=== PATIENT | female | born 1950 | race Caucasian/White ===

== ENCOUNTER 2020-05-07 09:44 | Outpatient (REF) | payer MEDICARE, SELFPAY ==
--- NOTE | ~2020-05-07 | FL_ITS ---
EXAMINATION: FL UPPER GI SERIES AND BARIUM SWALLOW CLINICAL INFORMATION: History gastritis, unspecified without bleeding. Patient notes intermittent GI absent and heartburn. COMPARISON: CT abdomen and pelvis 03/07/2019 TECHNIQUE: Upper GI series and barium swallow are performed using fluoroscopic evaluation in addition to multiple fluoroscopic spot views, including cine images during swallowing. The patient is imaged both upright and prone and using both thick and thin barium sulfate along with effervescent granules. Water siphon test performed. Fluoroscopy time: 2.0 minutes DAP: 11.88 Gycm2 Fluoroscopic spot images: 38 FINDINGS: There is normal esophageal motility. The cervical esophagus shows no web or diverticulum, No cervical achalasia. The thoracic esophagus show no obstruction, stricture, or ulceration. There is no hiatal hernia demonstrated. No gastroesophageal reflux. The stomach shows no thickened folds or ulcer crater or outlet obstruction. The duodenal bulb is pliable and without ulcer crater or scarring. There is a diverticulum from the descending duodenum. This measures approximately [address] 03/07/2019. It readily fills and empties with contrast. The upper jejunal mucosal pattern is unremarkable. FL/FL upper GI series IMPRESSION: 1. No hiatal hernia or reflux or ulceration. 2. No gastric ulcer or outlet obstruction. 3. Incidental chronic descending duodenal diverticulum, approximately 3 cm.
== END 2020-05-07 09:45 | disposition home or self-care (01) ==
LOC: HO.XRAY 09:44
PROVIDERS: PCP Internal Medicine; Visit Provider Internal Medicine
DX: K29.70 Gastritis, unspecified, without bleeding (principal)
CPT/HCPCS: 74240

== ENCOUNTER 2020-06-22 08:29 | Outpatient (REF) | payer MEDICARE, SELFPAY ==
--- NOTE | ~2020-06-22 | MM_ITS ---
EXAMINATION: MM SCREENING DIGITAL BREAST TOMOSYNTHESIS, BILATERAL CLINICAL INFORMATION: Screening. Asymptomatic. The lifetime risk of breast cancer based on the Tyrer-Cuzick Model is 5%. COMPARISON: Mammography: 03/28/2019, 12/24/2017, 12/04/2016 TECHNIQUE: Digital breast tomosynthesis is performed in both the craniocaudal and mediolateral oblique views along with computer-aided detection (CAD). Synthesized 2D images are generated from the tomosynthesis. FINDINGS: There are scattered areas of fibroglandular density (ACR BI-RADS breast composition Category b). There are no significant masses, abnormal calcifications, or other abnormalities. Parenchymal pattern is similar to prior studies. No significant changes. MM/MM tomosynthesis screening BI IMPRESSION: No mammographic evidence of malignancy. ASSESSMENT: BI-RADS 1: Negative RECOMMENDATION: Routine annual mammography screening. This patient's information was entered into a reminder system with a target due date for their next mammogram.
== END 2020-06-22 08:30 | disposition home or self-care (01) ==
LOC: HO.MAMMO 08:29
PROVIDERS: PCP Internal Medicine; Visit Provider Internal Medicine
DX: Z12.31 Encounter for screening mammogram for malignant neoplasm of breast (principal)
CPT/HCPCS: 77063; 77067

== ENCOUNTER 2020-09-07 15:42 | Outpatient (REF) | payer MEDICARE, SELFPAY ==
[2020-09-07 16:24] LABS: Anion Gap 15 (12-20); Carbon Dioxide 25 mmol/L (22-29); Chloride 93 mmol/L (96-108); Osmolality, Serum 264 mosm/kg (281-305); Potassium 4.9 mmol/L (3.3-5.1); Sodium 128 mmol/L (135-145)
[2020-09-07 16:46] LABS: Osmolality Urine 346 mosm/kg (373-1093)
[2020-09-15 00:22] LABS: Copeptin 4 pmol/L (< OR = 14)
== END 2020-09-07 15:43 | disposition home or self-care (01) ==
LOC: HO.LAB 15:42
PROVIDERS: Visit Provider Internal Medicine
DX: E87.1 Hypo-osmolality and hyponatremia (principal)
CPT/HCPCS: 36415; 80051; 83930; 83935; 84588

== ENCOUNTER 2020-09-10 06:35 | Outpatient (REF) | payer MEDICARE, SELFPAY ==
[2020-09-10 07:11] LABS: Anion Gap 14 (12-20); Carbon Dioxide 26 mmol/L (22-29); Chloride 98 mmol/L (96-108); Potassium 5.4 mmol/L (3.3-5.1); Sodium 133 mmol/L (135-145)
== END 2020-09-10 06:36 | disposition home or self-care (01) ==
LOC: HO.LAB 06:35
PROVIDERS: PCP Internal Medicine; Visit Provider Internal Medicine
DX: E87.1 Hypo-osmolality and hyponatremia (principal)
CPT/HCPCS: 36415; 80051

== ENCOUNTER 2020-09-13 06:51 | Outpatient (REF) | payer MEDICARE, SELFPAY ==
[2020-09-13 09:01] LABS: Anion Gap 14 (12-20); Carbon Dioxide 27 mmol/L (22-29); Chloride 99 mmol/L (96-108); Potassium 5.4 mmol/L (3.3-5.1); Sodium 135 mmol/L (135-145)
== END 2020-09-13 06:52 | disposition home or self-care (01) ==
LOC: HO.LAB 06:51
PROVIDERS: PCP Internal Medicine; Visit Provider Internal Medicine
DX: E87.1 Hypo-osmolality and hyponatremia (principal); R11.0 Nausea
CPT/HCPCS: 36415; 80051; 82533

== ENCOUNTER 2020-09-16 11:19 | Outpatient (REF) | payer MEDICARE, SELFPAY ==
[2020-09-16 13:41] LABS: Anion Gap 15 (12-20); Blood Urea Nitrogen 12 mg/dL (9-16); Calcium 9.7 mg/dL (8.4-10.2); Carbon Dioxide 26 mmol/L (22-29); Chloride 96 mmol/L (96-108); Estimated Glomerular Filt Rate > 60; Glucose Random 118 mg/dL (60-115); Potassium 4.8 mmol/L (3.3-5.1); Sodium 132 mmol/L (135-145)
== END 2020-09-16 11:20 | disposition home or self-care (01) ==
LOC: HO.LAB 11:19
PROVIDERS: PCP Internal Medicine; Visit Provider Internal Medicine
DX: E87.1 Hypo-osmolality and hyponatremia (principal); E87.6 Hypokalemia
CPT/HCPCS: 36415; 80048

== ENCOUNTER 2020-09-20 09:22 | Outpatient (REF) | payer MEDICARE, SELFPAY ==
[2020-09-20 10:34] LABS: Anion Gap 13 (12-20); Carbon Dioxide 28 mmol/L (22-29); Chloride 94 mmol/L (96-108); Potassium 5.2 mmol/L (3.3-5.1); Sodium 130 mmol/L (135-145)
== END 2020-09-20 09:23 | disposition home or self-care (01) ==
LOC: HO.LAB 09:22
PROVIDERS: PCP Internal Medicine; Visit Provider Internal Medicine
DX: R53.83 Other fatigue (principal)
CPT/HCPCS: 36415; 80051

== ENCOUNTER 2020-09-24 09:16 | Outpatient (REF) | payer MEDICARE, SELFPAY ==
[2020-09-24 10:06] LABS: Anion Gap 15 (12-20); Carbon Dioxide 28 mmol/L (22-29); Chloride 98 mmol/L (96-108); Potassium 5.5 mmol/L (3.3-5.1); Sodium 135 mmol/L (135-145)
== END 2020-09-24 09:17 | disposition home or self-care (01) ==
LOC: HO.LAB 09:16
PROVIDERS: PCP Internal Medicine; Visit Provider Internal Medicine
DX: E87.1 Hypo-osmolality and hyponatremia (principal)
CPT/HCPCS: 36415; 80051

== ENCOUNTER 2020-10-01 08:50 | Outpatient (REF) | payer MEDICARE, SELFPAY ==
[2020-10-01 09:56] LABS: Anion Gap 14 (12-20); Carbon Dioxide 28 mmol/L (22-29); Chloride 96 mmol/L (96-108); Potassium 5.1 mmol/L (3.3-5.1); Sodium 133 mmol/L (135-145)
== END 2020-10-01 08:51 | disposition home or self-care (01) ==
LOC: HO.LAB 08:50
PROVIDERS: PCP Internal Medicine; Visit Provider Internal Medicine
DX: E87.6 Hypokalemia (principal)
CPT/HCPCS: 36415; 80051

== ENCOUNTER 2020-10-15 10:24 | Outpatient (REF) | payer MEDICARE, SELFPAY ==
[2020-10-15 11:20] LABS: Anion Gap 12 (12-20); Carbon Dioxide 29 mmol/L (22-29); Chloride 96 mmol/L (96-108); Potassium 5.2 mmol/L (3.3-5.1); Sodium 132 mmol/L (135-145)
== END 2020-10-15 10:25 | disposition home or self-care (01) ==
LOC: HO.LAB 10:24
PROVIDERS: PCP Internal Medicine; Visit Provider Internal Medicine
DX: E87.1 Hypo-osmolality and hyponatremia (principal)
CPT/HCPCS: 36415; 80051

== ENCOUNTER 2020-10-22 10:30 | Outpatient (REF) | payer MEDICARE, SELFPAY ==
[2020-10-22 12:05] LABS: Anion Gap 14 (12-20); Carbon Dioxide 27 mmol/L (22-29); Chloride 95 mmol/L (96-108); Potassium 5.3 mmol/L (3.3-5.1); Sodium 131 mmol/L (135-145)
== END 2020-10-22 10:31 | disposition home or self-care (01) ==
LOC: HO.LAB 10:30
PROVIDERS: PCP Internal Medicine; Visit Provider Internal Medicine
DX: E87.1 Hypo-osmolality and hyponatremia (principal)
CPT/HCPCS: 36415; 80051

== ENCOUNTER 2020-12-13 10:35 | Outpatient (REF) | payer MEDICARE, SELFPAY ==
[2020-12-13 11:47] LABS: Anion Gap 13 (12-20); Carbon Dioxide 29 mmol/L (22-29); Chloride 97 mmol/L (96-108); Potassium 5.6 mmol/L (3.3-5.1); Sodium 133 mmol/L (135-145)
== END 2020-12-13 10:36 | disposition home or self-care (01) ==
LOC: HO.LAB 10:35
PROVIDERS: PCP Internal Medicine; Visit Provider Internal Medicine
DX: E87.1 Hypo-osmolality and hyponatremia (principal)
CPT/HCPCS: 36415; 80051

== ENCOUNTER 2020-12-31 14:27 | Outpatient (REF) | payer MEDICARE, SELFPAY ==
[2020-12-31 15:37] LABS: Alanine Aminotransferase 15 U/L (0-31); Albumin Level 4.8 g/dL (3.5-5.0); Alkaline Phosphatase 75 U/L (39-117); Anion Gap 14 (12-20); Aspartate Amino Transferase 21 U/L (5-31); Bilirubin Total 0.3 mg/dL (0.0-1.0); Blood Urea Nitrogen 17 mg/dL (9-16); Calcium 9.8 mg/dL (8.4-10.2); Carbon Dioxide 26 mmol/L (22-29); Chloride 98 mmol/L (96-108); Estimated Glomerular Filt Rate > 60; Glucose Random 117 mg/dL (60-115); Potassium 4.3 mmol/L (3.3-5.1); Sodium 134 mmol/L (135-145); Total Protein 7.5 g/dL (6.5-8.0)
[2020-12-31 15:58] LABS: Thyroid Stimulating Hormone 1.93 uIU/mL (0.32-4.0)
[2020-12-31 16:06] LABS: Osmolality Urine 491 mosm/kg (373-1093)
== END 2020-12-31 14:28 | disposition home or self-care (01) ==
LOC: HO.LAB 14:27
PROVIDERS: PCP Internal Medicine; Visit Provider Internal Medicine Hypertension Specialist
DX: E87.1 Hypo-osmolality and hyponatremia (principal)
CPT/HCPCS: 36415; 80053; 83935; 84300; 84443

== ENCOUNTER 2021-01-28 09:32 | Outpatient (REF) | payer MEDICARE, SELFPAY ==
[2021-01-28 10:31] LABS: Anion Gap 13 (12-20); Blood Urea Nitrogen 14 mg/dL (9-16); Calcium 9.8 mg/dL (8.4-10.2); Carbon Dioxide 29 mmol/L (22-29); Chloride 98 mmol/L (96-108); Estimated Glomerular Filt Rate > 60; Glucose Random 75 mg/dL (60-115); Potassium 5.5 mmol/L (3.3-5.1); Sodium 134 mmol/L (135-145)
== END 2021-01-28 09:33 | disposition home or self-care (01) ==
LOC: HO.LAB 09:32
PROVIDERS: PCP Internal Medicine; Visit Provider Internal Medicine Hypertension Specialist
DX: E87.1 Hypo-osmolality and hyponatremia (principal)
CPT/HCPCS: 36415; 80048

== ENCOUNTER 2021-02-14 08:27 | Outpatient (REF) | payer MEDICARE, SELFPAY ==
[2021-02-14 09:45] LABS: Anion Gap 10 (12-20); Blood Urea Nitrogen 17 mg/dL (9-16); Carbon Dioxide 31 mmol/L (22-29); Chloride 101 mmol/L (96-108); Estimated Glomerular Filt Rate > 60; Potassium 5.6 mmol/L (3.3-5.1); Sodium 136 mmol/L (135-145)
== END 2021-02-14 08:28 | disposition home or self-care (01) ==
LOC: HO.LAB 08:27
PROVIDERS: PCP Internal Medicine; Visit Provider Internal Medicine Hypertension Specialist
DX: E87.1 Hypo-osmolality and hyponatremia (principal)
CPT/HCPCS: 36415; 80051; 82310; 82565; 84520

== ENCOUNTER 2021-02-17 09:54 | Outpatient (REF) | payer MEDICARE, SELFPAY ==
--- NOTE | ~2021-02-17 | XR_ITS ---
EXAMINATION: CR HIP, LEFT CLINICAL INFORMATION: Left. Rule out DJD. COMPARISON: CT scan of the abdomen and pelvis dated 03/07/2019. TECHNIQUE: Two views of the left hip. FINDINGS: No acute fracture or dislocation. Minimal degenerative change seen with minimal spurring and cystic changes in the lateral acetabular roof and mild superior joint space narrowing. The left sacroiliac joint and pubic symphysis are intact and unremarkable. Mild spurring is seen in the lower lumbar spine. XR/XR hip LT min 2V IMPRESSION: 1. No acute fracture or dislocation. 2. Mild degenerative changes in the left hip.
== END 2021-02-17 09:55 | disposition home or self-care (01) ==
LOC: HO.HMGCX 09:54
PROVIDERS: Absent Provider Orthopaedic Surgery; PCP Internal Medicine; Visit Provider Internal Medicine
DX: M25.552 Pain in left hip (principal)
CPT/HCPCS: 73502

== ENCOUNTER 2021-03-14 08:45 | Outpatient (REF) | payer MEDICARE, SELFPAY ==
--- NOTE | ~2021-03-14 | XR_ITS ---
EXAMINATION: XR PELVIS CLINICAL INFORMATION: Pain COMPARISON: Left hip x-ray 02/17/2021 TECHNIQUE: AP view of the pelvis. FINDINGS: Bone alignment is normal. No fracture or dislocation is seen. There is small osteophytes at both hip joints. The hip joints are otherwise normal. Bones of the pelvis are normal. There are degenerative changes of the visualized lower lumbar spine. Soft tissues are unremarkable. XR/XR pelvis 1-2V IMPRESSION: Small osteophytes at both hip joints. Degenerative changes of visualized lower lumbar spine.
== END 2021-03-14 08:46 | disposition home or self-care (01) ==
LOC: HO.HOSX 08:45
PROVIDERS: Visit Provider Physician Assistant
DX: M16.12 Unilateral primary osteoarthritis, left hip (principal); M76.899 Other specified enthesopathies of unspecified lower limb, excluding foot
CPT/HCPCS: 72170; 99202

== ENCOUNTER → 2021-03-17 10:14 | Outpatient (BNVA) | payer MEDICARE, SELFPAY | PROVIDERS: PCP Internal Medicine; Referring Provider Internal Medicine; Visit Provider Surgery | DX: R10.32 Left lower quadrant pain (principal) | CPT/HCPCS: 99202 ==

== ENCOUNTER 2021-03-28 09:00 | Outpatient (RCR) | payer MEDICARE, SELFPAY ==
--- NOTE | 2021-08-10 14:36 | MHC.PT.DC ---
[facility] [place] [facility] [place] [facility] [address] [place] Morales [address] [facility] [place] [phone] F: [phone] F: [phone] F: [phone] F: [phone] Physical Therapy Discharge Report Diagnosis: OA L hip, L hip flexor tendonitis. Date of Surgery: Date of Evaluation: 03/22/21 Date of Discharge: 08/10/21 Treatments to Date: 2 Cancellations to Date: No Shows to Date: Discharge Status: Patient Elected to Stop Discharge Summary: Electronically signed by: Mino Davidson PT. Please sign and return to therapist. Thank you for your referral.
== END 2021-08-10 14:36 | disposition home or self-care (01) ==
LOC: HO.PTCHIC 09:00
PROVIDERS: PCP Internal Medicine; Visit Provider Physician Assistant
DX: M16.12 Unilateral primary osteoarthritis, left hip (principal); M76.899 Other specified enthesopathies of unspecified lower limb, excluding foot
CPT/HCPCS: 97110; 97150; 97161

== ENCOUNTER → 2021-04-25 09:58 | Outpatient (BNVA) | payer MEDICARE, SELFPAY | PROVIDERS: PCP Internal Medicine; Visit Provider Physician Assistant | DX: M76.899 Other specified enthesopathies of unspecified lower limb, excluding foot (principal); M16.12 Unilateral primary osteoarthritis, left hip | CPT/HCPCS: 99212 ==

== ENCOUNTER 2021-06-28 07:47 | Outpatient (REF) | payer MEDICARE, SELFPAY ==
--- NOTE | ~2021-06-28 | MM_ITS ---
EXAMINATION: MM SCREENING DIGITAL BREAST TOMOSYNTHESIS, BILATERAL CLINICAL INFORMATION: Screening. Asymptomatic. The lifetime risk of breast cancer based on the Tyrer-Cuzick Model is 5%. COMPARISON: Mammography: 06/22/2020, 03/28/2019, 12/24/2017 TECHNIQUE: Digital breast tomosynthesis is performed in both the craniocaudal and mediolateral oblique views along with computer-aided detection (CAD). Synthesized 2D images are generated from the tomosynthesis. FINDINGS: There are scattered areas of fibroglandular density (ACR BI-RADS breast composition Category b). There are no significant masses, abnormal calcifications, or other abnormalities. Parenchymal pattern is similar to prior studies. No developing density. The axilla and skin contours are unremarkable. MM/MM tomosynthesis screening BI IMPRESSION: No mammographic evidence of malignancy. ASSESSMENT: BI-RADS 1: Negative RECOMMENDATION: Routine annual mammography screening. This patient's information was entered into a reminder system with a target due date for their next mammogram.
--- NOTE | ~2021-06-28 | MM_ITS ---
EXAMINATION: BONE DENSITOMETRY CLINICAL INDICATION: Postmenopausal. COMPARISON: Baseline BD dated 10/26/2015. TECHNIQUE: Using a [employer] DXA System (software version: 13.1) manufactured by [employer], dual-energy x-ray absorptiometry was performed of the lumbar spine and left hip. The images are of good technical quality. Summary results are attached. FINDINGS: AP SPINE L1-L2 (excluding L3 and L4): The data of L1-L4 has been changed to exclude the L3 and L4 vertebral bodies, because degenerative changes at these levels may cause overestimation of lumbar spine density. Current: BMD 0.925 g/cm2, Z-score -0.4, T-score -2.0, osteopenia, 4.0% decrease from baseline (<5% change is not significant). Baseline: BMD 0.964 g/cm2. LEFT FEMUR, NECK: Current: BMD 0.744 g/cm2, Z-score -0.5, T-score -2.1, osteopenia. Baseline: BMD 0.806 g/cm2. LEFT FEMUR, TOTAL: Current: BMD 0.838 g/cm2, Z-score 0.1, T-score -1.3, osteopenia, 5.2% decrease from baseline (<5% change is not significant). Baseline: BMD 0.884 g/cm2. IDENTIFIED RISK FACTORS: Height loss, family history (parental hip fracture), menopause. HISTORY OF FRACTURE: None listed. MEDICATIONS: None listed. MM/XR DEXA axial skeleton IMPRESSION: 1. DIAGNOSIS: Osteopenia based on the lowest T-score value of -2.1 in the femoral neck applying World Health Organization criteria. 2. 10-YEAR FRACTURE RISK PREDICTION, FRAX: Major osteoporotic fracture (clinical spine, forearm, hip or shoulder) 20.5%. Hip fracture 6.0%. 3. Treatment Recommendations: NOF guidelines recommend consideration for treatment in postmenopausal women and men age 50 and older presenting with the following: -A hip or vertebral (clinical or morphometric) fracture. -T-score less than or equal to -2.5 at the femoral neck or spine after appropriate evaluation to exclude secondary causes. -Low bone mass at the hip or spine and a 10-year fracture probability by FRAX of greater than or equal to 3% for hip fracture or greater than or equal to 20% for major osteoporotic fracture based on the [place] adapted WHO algorithm. 4. Other Recommendations: All treatment decisions require clinical judgment and consideration of individual patient factors, including patient preferences, comorbidities, previous drug use, risk factors not captured in the FRAX model (e.g. frailty, falls, vitamin D deficiency, increased bone turnover, interval significant decline in bone density) and possible under or overestimation of fracture risk by FRAX. Additional medical evaluation for secondary cause of low bone mineral density may be appropriate. FUTURE SCAN RECOMMENDATION: People with diagnosed cases of osteoporosis or at high risk for fracture should have regular bone mineral density tests. For patients eligible for Medicare, routine testing is allowed once every 2 years. The testing frequency can be increased to one year for patients who have rapidly progressing disease, those who are receiving or discontinuing medical therapy to restore bone mass, or have additional risk factors.
== END 2021-06-28 07:48 | disposition home or self-care (01) ==
LOC: HO.MAMMO 07:47
PROVIDERS: Visit Provider Internal Medicine
DX: Z12.31 Encounter for screening mammogram for malignant neoplasm of breast (principal); Z13.820 Encounter for screening for osteoporosis; Z78.0 Asymptomatic menopausal state; M85.80 Other specified disorders of bone density and structure, unspecified site
CPT/HCPCS: 77063; 77067; 77080

== ENCOUNTER 2021-11-02 10:22 | Outpatient (REF) | payer MEDICARE, SELFPAY ==
--- NOTE | ~2021-11-02 | XR_ITS ---
EXAMINATION: XR ANKLE, LEFT CLINICAL INFORMATION: Sprain left ankle COMPARISON: None TECHNIQUE: AP, lateral, and mortise views of the left ankle. FINDINGS: There is a nondisplaced oblique fracture distal fibula with moderate lateral malleolar soft tissue swelling. No additional fracture or dislocation seen. The ankle mortise and subtalar joints are normal. XR/XR ankle LT min 3V IMPRESSION: Nondisplaced oblique fracture distal fibula with moderate lateral malleolar soft tissue swelling.
== END 2021-11-02 10:23 | disposition home or self-care (01) ==
LOC: HO.HMGCX 10:22
PROVIDERS: Visit Provider Physician Assistant
DX: S93.402A Sprain of unspecified ligament of left ankle, initial encounter (principal)
CPT/HCPCS: 73610

== ENCOUNTER 2021-11-10 09:20 | Outpatient (REF) | payer MEDICARE, SELFPAY ==
--- NOTE | ~2021-11-10 | XR_ITS ---
EXAMINATION: XR ANKLE, LEFT CLINICAL INFORMATION: Pain. COMPARISON: Radiographs dated 11/02/2021. TECHNIQUE: AP, lateral, and mortise views of the left ankle. FINDINGS: Bony mineralization is normal. A mildly displaced oblique fracture is seen of the distal left fibula. The ankle mortise remains intact. There is no dislocation or joint effusion. Boehler's angle is normal. There is no significant calcaneal spur. There is mild degenerative change of the dorsal midfoot. There is moderate soft tissue swelling adjacent to the lateral malleolus. XR/XR ankle LT min 3V IMPRESSION: There is stable alignment of a slightly displaced fracture of the distal left fibular shaft. There is adjacent moderate soft tissue swelling.
== END 2021-11-10 09:21 | disposition home or self-care (01) ==
LOC: HO.HOSX 09:20
PROVIDERS: Visit Provider Physician Assistant
DX: S82.832A Other fracture of upper and lower end of left fibula, initial encounter for closed fracture (principal)
CPT/HCPCS: 73610; 99212

== ENCOUNTER 2021-12-09 07:29 | Outpatient (REF) | payer MEDICARE, SELFPAY ==
--- NOTE | ~2021-12-09 | XR_ITS ---
EXAMINATION: XR ANKLE, LEFT CLINICAL INFORMATION: Pain COMPARISON: Left ankle x-rays 11/10/2021 TECHNIQUE: AP, lateral, and mortise views of the left ankle. FINDINGS: Stable appearance of minimally displaced fracture of the distal fibula. Fracture line still visualized. Ankle mortise is maintained. Soft tissue swelling of the lateral ankle have resolved. Mild degenerative changes of the midfoot. XR/XR ankle LT min 3V IMPRESSION: Stable appearance of minimally displaced fracture of the distal fibula.
== END 2021-12-09 07:30 | disposition home or self-care (01) ==
LOC: HO.HOSX 07:29
PROVIDERS: Visit Provider Physician Assistant
DX: M25.572 Pain in left ankle and joints of left foot (principal)
CPT/HCPCS: 73610

== ENCOUNTER 2022-01-16 06:59 | Emergency (ER) | payer MEDICARE, SELFPAY ==
--- NOTE | ~2022-01-16 | CT_ITS ---
EXAMINATION: CT HEAD WITHOUT CONTRAST CLINICAL INFORMATION: Fell down and hit had COMPARISON: None TECHNIQUE: Contiguous axial imaging was performed from the skull base to vertex without intravenous administration of contrast. This CT examination was performed using dose optimization techniques as appropriate, variously including the following: *Automated exposure control *Adjustment of mA and/or kV according to patient size (this includes techniques or standardized protocols for targeted exams where dose is matched to indication/reason for exam; i.e. extremities or head) *Use of iterative reconstruction technique DLP: 634 mGy-cm FINDINGS: Midline scalp laceration noted with a punctate focus of air and radiopaque densities in the scalp likely posttraumatic. No underlying calvarial fracture. There is slight prominence to the sulci and ventricles with deep white matter gliosis all compatible with involutional change. No intra or extra-axial fluid collection, hemorrhage, mass or mass effect. A few tiny punctate calcifications in the right centrum semiovale are incidentally seen. CT/CT head/brain wo IV con IMPRESSION: No intracranial hemorrhage. Anterior midline scalp injury.
[2022-01-16 07:10] VITALS: BP 198/95; PULSE 71; RESP 16; TEMP 36.4; O2SAT 99; BMI 23.3
--- NOTE | 2022-01-16 07:43 | ED_ITS ---
HPI - Fall General Chief Complaint: Fall Stated Complaint: fall Time Seen by Provider: 01/16/22 07:23 Source: patient History of Present Illness HPI Narrative: The patient states she was walking downstairs last night at her house when she lost her balance, tripped and fell. The patient denies any loss of consciousness, but does complain of a laceration on the top of the head. There is also a laceration above the right eye. There is no neck pain. The patient has no other complaints. She is not on anticoagulants complaint: fall Onset (ago): hour(s) (10 hours ago) Fall from: down stairs (#) Fall witnessed: no Place fall occurred: home Loss of consciousness: none Prolonged down time: no Symptoms prior to fall: none Context: tripped/slipped Location of injury: head and face Related Data Home Medications Medication Instructions Recorded Confirmed alprazolam 1 mg tablet 1 mg PO TID PRN 03/17/21 03/17/21 temazepam 30 mg capsule 30 mg PO BEDTIME PRN 03/17/21 03/17/21 valsartan 80 mg tablet 80 mg PO DAILY 03/17/21 03/17/21 clonazepam 2 mg tablet 2 mg PO DAILY PRN 11/10/21 Previous Rx's Medication Instructions Recorded meloxicam 15 mg tablet 15 mg PO DAILY 30 days #30 tabs 03/14/21 Allergies Allergy/AdvReac Type Severity Reaction Status Date / Time penicillin G Allergy Unknown pt unsure Verified 12/09/21 10:45 Review of Systems Review of Systems: Constitutional:??J Constitutional: De nies chills, Denie s fatigue and head ache(s) ENT:?? No nosebleed, no s ore throat Cardiovascular:??J Cardiovascular: De nies chest pain an d Denies dyspnea Respiratory:?? Respiratory: Denie s cough and Denies wheezing PMFSH Past Medical History Attestation statement: The following information was validated with the patient. Medical History High cholesterol Surgical History History of appendectomy History of left inguinal hernia repair Social History Social History Alcohol intake: current Patient Tobacco Use Status: Never used Tobacco Advance Directives: Yes Advance Directives Information Provided: No Advance Directives on File: No Current occupational status: retired 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 Physical Exam Vital Signs: Vital Signs: Last Vital Signs Temp 97.8 F 01/16/22 07:48 Pulse 67 01/16/22 07:48 Resp 14 01/16/22 07:48 BP 182/77 H 01/16/22 07:48 Pulse Ox 98 01/16/22 07:48 O2 Del Method 01/16/22 07:48 BMI result Body Mass Index 23.3 Hypertension noted Const: General: cooperative, healthy appearing, comfortable and no acute distress Orientation/consciousness: patient oriented x3 HEENT: Head: Yes No palpable skull fracture present and Yes laceration Head images: 1. 10 cm laceration on the top of the head, superficial, does not penetrate to the g[place] Ears: external ears normal General nose exam: Normal external nose present Face images: 1. Ecchymosis 2. Laceration Eyes: Conjunctivae: conjunctival abnormal right subconjunctival hemorrhage Sclerae: sclerae normal Pupils: Equal, round and reactive pupils present EOM: EOMs intact bilaterally Neck: Neck: Yes normal visual inspection, Yes full ROM and No tender Chest: Chest palpation & inspection: normal inspection of the chest and no tenderness Resp: Effort & Inspection: normal respiratory effort and no cough GI: Inspection: Yes normal to inspection Palpation (GI): nontender Back/Spine/Pelvis: Cervical Spine: normal cervical lordosis, cervical ROM normal, No pain with cervical ROM and No Cervical spine tenderness Thoracic/Lumbar Spine: thoracic and lumbar spine normal to inspection Skin: General skin exam: no rashes or lesions noted and no mottling Neuro: General: patient oriented x3 Cranial nerves: Yes CN's II-XII intact bilaterally and Yes Equal, round and reactive pupils present Gait exam (Neuro): Normal gait present Motor exam (neuro): 5/5 motor strength present throughout Medications Administered Discontinued Medications Generic Name Dose Route Start Last Admin Trade Name Freq PRN Reason Stop Dose Admin Lidocaine HCl 1 appl 01/16/22 07:42 01/16/22 08:25 Lidocaine 4 % Cream Kit TOPICAL 01/16/22 07:43 1 appl ONCE ONE Administration Protocol Procedures Laceration Laceration 1: Site: face (Right eyelid) Side (If applicable): right Size (cm): 3 Description: linear and clean Depth: simple, single layer Local Anesthetic: other anesthetic (None) Pre-repair: wound explored Skin layer closed with: other (Skin adhesive) Laceration 2: Site: scalp Size (cm): 10 Description: linear and clean Depth: simple, single layer Local Anesthetic: other anesthetic (Lidocaine gel) Pre-repair: wound explored Skin layer closed with: other (Cruz) Technique: simple, interrupted MDM - Fall MDM Narrative Medical decision making narrative: 71-year-old female who fell down the stairs last night. No loss of consciousness, but because of age, a CT scan of the head was obtained which was normal. Patient underwent laceration repair using cruz and skin glue (see documentation below). Will be discharged home to follow-up in 5-6 days for stap le removal. Imaging Data CT scan - head: Radiologist's impression: IMPRESSION: No intracranial hemorrhage. Anterior midline scalp injury Discharge Plan Discharge Clinical Impression: Laceration of scalp Qualifiers: Encounter type: initial encounter Qualified Code(s): S01.01XA - Laceration without foreign body of scalp, initial encounter Eyelid laceration, right Qualifiers: Encounter type: initial encounter Qualified Code(s): S01.111A - Laceration without foreign body of right eyelid and periocular area, initial encounter Patient Disposition: Home, Self-Care Instructions: Skin Adhesive Care (ED), Facial Laceration (ED) Additional Instructions: Cruz in her scalp can come out between next Sunday in next Sunday. You may call your primary care doctor or go to an urgent care to have them removed. You can come here to have your curz removed, but you may be waiting a long time. Prescriptions: No Action alprazolam 1 mg tablet 1 mg PO TID PRN valsartan 80 mg tablet 80 mg PO DAILY temazepam 30 mg capsule 30 mg PO BEDTIME PRN meloxicam 15 mg tablet 15 mg PO DAILY 30 Days Qty: 30 0RF clonazepam 2 mg tablet 2 mg PO DAILY PRN
[2022-01-16 07:48] VITALS: BP 182/77; PULSE 67; RESP 14; TEMP 36.6; O2SAT 98
--- NOTE | 2022-01-16 08:06 | PC.NURSE ---
Pt at CT scan at this time
[2022-01-16] MEDS: Lidocaine 4 % Cream KIT 1 APPL TOPICAL (08:25)
== END 2022-01-16 09:48 | disposition home or self-care (01) ==
PROVIDERS: Emergency Provider Emergency Medicine; PCP Internal Medicine
DX: S01.111A Laceration without foreign body of right eyelid and periocular area, initial encounter (principal); S01.01XA Laceration without foreign body of scalp, initial encounter; R51.9 Headache, unspecified; M54.2 Cervicalgia; W01.10XA Fall on same level from slipping, tripping and stumbling with subsequent striking against unspecified object, initial encounter; Y93.9 Activity, unspecified; Y92.9 Unspecified place or not applicable; Y99.9 Unspecified external cause status; Z79.899 Other long term (current) drug therapy
CPT/HCPCS: 12004; 12013; 70450; 99284

== ENCOUNTER 2022-07-13 09:03 | Outpatient (REF) | payer MEDICARE, SELFPAY ==
--- NOTE | ~2022-07-13 | MM_ITS ---
EXAMINATION: MM SCREENING DIGITAL BREAST TOMOSYNTHESIS, BILATERAL CLINICAL INFORMATION: Screening. Asymptomatic. The lifetime risk of breast cancer based on the Tyrer-Cuzick Model is 4%. COMPARISON: Mammography: 06/28/2021, 06/22/2020, 03/28/2019, 12/24/2017 TECHNIQUE: Digital breast tomosynthesis is performed in both the craniocaudal and mediolateral oblique views along with computer-aided detection (CAD). Synthesized 2D images are generated from the tomosynthesis. FINDINGS: There are scattered areas of fibroglandular density (ACR BI-RADS breast composition Category b). There are no significant masses, abnormal calcifications, or other abnormalities. There are some minor asymmetries similar to prior studies. No developing density or architectural abnormality. The axilla and skin contours are unremarkable. MM/MM tomosynthesis screening BI IMPRESSION: No mammographic evidence of malignancy. ASSESSMENT: BI-RADS 2: Benign RECOMMENDATION: Routine annual mammography screening. This patient's information was entered into a reminder system with a target due date for their next mammogram.
== END 2022-07-13 09:04 | disposition home or self-care (01) ==
LOC: HO.MAMMO 09:03
PROVIDERS: PCP Internal Medicine; Visit Provider Internal Medicine
DX: Z12.31 Encounter for screening mammogram for malignant neoplasm of breast (principal)
CPT/HCPCS: 77063; 77067

== ENCOUNTER 2023-07-16 08:51 | Outpatient (REF) | payer MEDICARE, SELFPAY ==
--- NOTE | ~2023-07-16 | MM_ITS ---
EXAMINATION: MM SCREENING DIGITAL BREAST TOMOSYNTHESIS, BILATERAL CLINICAL INFORMATION: Screening. Asymptomatic. COMPARISON: Mammography: This study is compared with prior exams dating back to 2019. TECHNIQUE: Digital breast tomosynthesis is performed in both the craniocaudal and mediolateral oblique views along with computer-aided detection (CAD). Synthesized 2D images are generated from the tomosynthesis. FINDINGS: There are scattered areas of fibroglandular density (ACR BI-RADS breast composition Category b). In the deep third of the upper outer quadrant of the left breast, there is an asymmetry which warrants additional mammographic and targeted sonographic imaging. In the right breast, there are no significant masses, abnormal calcifications, or other abnormalities. MM/MM tomosynthesis screening BI IMPRESSION: Asymmetry of the superior aspect of the left breast warrants additional mammographic and targeted sonographic imaging. No mammographic signs of malignancy right breast. ASSESSMENT: BI-RADS BI-RADS 0 - Incomplete: Needs additional Imaging. RECOMMENDATION: 1. Additional views of the left breast 2. Targeted ultrasound if warranted after review of the additional views. 3. Radiology department staff will contact the patient for additional imaging. Additional Imaging required This examination should not preclude the clinical evaluation of a suspicious palpable abnormality. This patient's information was entered into a reminder system with a target due date for their next mammogram.
== END 2023-07-16 08:52 | disposition home or self-care (01) ==
LOC: HO.MAMMO 08:51
PROVIDERS: PCP Internal Medicine; Visit Provider Internal Medicine
DX: Z12.31 Encounter for screening mammogram for malignant neoplasm of breast (principal)
CPT/HCPCS: 77063; 77067

== ENCOUNTER → 2023-07-16 09:00 | Outpatient (BNV) | payer MEDICARE, SELFPAY | PROVIDERS: PCP Internal Medicine; Visit Provider Radiology Diagnostic Radiology | DX: Z12.31 Encounter for screening mammogram for malignant neoplasm of breast (principal) | CPT/HCPCS: 77063; 77067 ==

== ENCOUNTER 2023-07-27 13:13 | Outpatient (REF) | payer MEDICARE, SELFPAY ==
--- NOTE | ~2023-07-27 | MM_ITS ---
EXAMINATION: MM DIAGNOSTIC DIGITAL BREAST TOMOSYNTHESIS, LEFT CLINICAL INFORMATION: Follow-up one view asymmetry upper left breast seen on MLO view only. No CC correlate. COMPARISON: Mammography: 07/16/2023, 07/13/2022, 06/28/2021, 06/22/2020, 03/28/2019, 12/24/2017, 12/04/2016. TECHNIQUE: Digital breast tomosynthesis is performed. 2D images are generated from the tomosynthesis. The following views are obtained: Full-field 3-D left mediolateral view, and spot compression 3-D view left MLO view. FINDINGS: The breasts are heterogeneously dense, which may obscure small masses (ACR BI-RADS breast composition Category c). Additional views demonstrate complete effacement of the one view asymmetry in the upper outer left breast on spot compression view. In retrospect, this area is completely unchanged when compared with 12/04/2016 exam. This represents superimposition artifact of overlapping tissues, and is benign. No further follow-up recommended. No new suspicious findings evident in the left lung. MM/MM tomosynthesis added views L IMPRESSION: No persistent findings suspicious for malignancy. Recommend the patient return to routine screening. ASSESSMENT: BI-RADS BI-RADS 1 - Negative RECOMMENDATION: 1 year F/U Results were provided to the patient at time of visit by the technologist. This patient's information was entered into a reminder system with a target due date for their next mammogram.
== END 2023-07-27 13:14 | disposition home or self-care (01) ==
LOC: HO.MAMMO 13:13
PROVIDERS: PCP Internal Medicine; Visit Provider Internal Medicine
DX: N64.89 Other specified disorders of breast (principal)
CPT/HCPCS: 77061; 77065

== ENCOUNTER → 2023-07-27 13:30 | Outpatient (BNV) | payer MEDICARE, SELFPAY | PROVIDERS: PCP Internal Medicine; Visit Provider Radiology Diagnostic Radiology | DX: R92.8 Other abnormal and inconclusive findings on diagnostic imaging of breast (principal) | CPT/HCPCS: 77065; G0279 ==

== ENCOUNTER 2024-03-11 11:19 | Day surgery (SDC) | payer MEDICARE, SELFPAY ==
--- NOTE | 2024-03-10 12:26 | HO.ANESPROP2 ---
Documented by User: Anne-Marie Sadler NP 03/10/24 12:26 HPI - Anesthesia Eval Consult details Narrative: 74yo F for Upper Endoscopy [facility] Active Problems Active Problems: All Active Problems Fracture of distal end of left fibula (Acute) Left inguinal pain (Acute) Hip flexor tendinitis (Acute) Osteoarthritis of left hip (Acute) Past Medical History Medical History (Updated 03/10/24 @ 11:30 by Susannah Martinez, RN) Anxiety GERD (gastroesophageal reflux disease) HTN (hypertension) High cholesterol Surgical History Surgical History (Updated 03/10/24 @ 11:31 by Susannah Martinez RN) History of nasal surgery History of left inguinal hernia repair History of appendectomy Social History Social History Alcohol intake: current Patient Tobacco Use Status: Never used Tobacco Use of substances other than those prescribed or required for medical reasons: Yes Are you DNR?: No Advance Directives: No Advance Directives Information Provided: Yes Recently lost weight without trying: No Nutrition Risks: No Nutritional Risk Patient : No Current occupational status: retired 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 [employer] Meds Allergies Allergy/AdvReac Type Severity Reaction Status Date / Time penicillin G Allergy Unknown pt unsure Verified 12/09/21 10:45 Home Medications ?Medication ?Instructions ?Recorded ?Confirmed ?Last Taken ?Type alprazolam 1 mg tablet 1 mg PO TID PRN 03/17/21 03/17/21 Unknown History temazepam 30 mg capsule 30 mg PO BEDTIME PRN 03/17/21 03/17/21 Unknown History valsartan 80 mg tablet 80 mg PO DAILY 03/17/21 03/17/21 03/11/24 History clonazepam 2 mg tablet 2 mg PO DAILY PRN 11/10/21 Unknown History Assessment and Plan Assessment Anesthesia Assessment: Chart Reviewed Documented by User: Harper Stern MD 03/11/24 13:07 PMFSH Past Medical History Medical History (Updated 03/10/24 @ 11:30 by Susannah Martinez RN) Anxiety GERD (gastroesophageal reflux disease) HTN (hypertension) High cholesterol Family History Family history of problems with anesthesia: No Surgical History Surgical History (Updated 03/10/24 @ 11:31 by Susannah Martinez RN) History of nasal surgery History of left inguinal hernia repair History of appendectomy History of Problems with Anesthesia: No Social History Social History Alcohol intake: current Patient Tobacco Use Status: Never used Tobacco Use of substances other than those prescribed or required for medical reasons: Yes Are you DNR?: No Advance Directives: No Advance Directives Information Provided: Yes Recently lost weight without trying: No Nutrition Risks: No Nutritional Risk Patient : No Current occupational status: retired 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 Meds Allergies Allergy/AdvReac Type Severity Reaction Status Date / Time penicillin G Allergy Unknown pt unsure Verified 12/09/21 10:45 Home Medications ?Medication ?Instructions ?Recorded ?Confirmed ?Last Taken ?Type alprazolam 1 mg tablet 1 mg PO TID PRN 03/17/21 03/17/21 Unknown History temazepam 30 mg capsule 30 mg PO BEDTIME PRN 03/17/21 03/17/21 Unknown History valsartan 80 mg tablet 80 mg PO DAILY 03/17/21 03/17/21 03/11/24 History clonazepam 2 mg tablet 2 mg PO DAILY PRN 11/10/21 Unknown History Exam Airway Mallampati Class: II TM Dist: >3cm Neck ROM: Full Assessment and Plan Assessment Anesthesia Assessment: Anesthesia Plan Discussed Final Anesthetic Review Family History of Problems with Anesthesia: No History of Problems with Anesthesia: No NPO: Yes ASA Class: II Final Preanesthetic Review: No Changes in Pt Med Stat, Meds/Allgs Chart Reviewed, Consent Obtained/Reviewed and Anes Risks/Benef Reviewed Patient Risk: Low Procedure Risk: Low Anesthetic Plan Anesthetic Plan: TIVA Disposition: Standard PACU
[2024-03-11 11:33] VITALS: BMI 26.8
[2024-03-11 11:45] VITALS: BP 172/70; PULSE 69; RESP 16; TEMP 37.1; O2SAT 95
[2024-03-11] MEDS: Lactated Ringers 1,000 ML 100 ML IVCONT (11:55)
--- OUTSIDE RECORDS SUMMARY | 2024-03-11 12:36 | XMS_ITS | Clinical Summary ---
Author Organization [facility] Address [address] [place] [address] Phone Care Team Providers Care Lab Support Tech Name Role Phone Ananth Fung MD Primary Care Provider [phone] Allergies Active Allergy Reactions Criticality Noted Date Comments Penicillins 12/22/2020 Medications fluconazole (DIFLUCAN) 100 MG tablet Take 100 mg by mouth 1 (one) time each day Active betamethasone dipropionate 0.05 % cream Apply topically 2 (two) times a day Active esomeprazole (NexIUM) [address] capsule Take 40 mg by mouth 1 (one) time each day before breakfast Do not open capsule. Active predniSONE (DELTASONE) 10 MG tablet Take by mouth 1 (one) time each day Active FLUoxetine (PROzac) 20 MG capsule Take 20 mg by mouth 1 (one) time each day Active Misc. Devices (The Side Rester Cushion) misc Active Temazepam (RESTORIL PO) Take 30 mg by mouth Active Ferrous Sulfate (IRON PO) Take by mouth Active VITAMIN D PO Take by mouth Act adria levoFLOXacin (LEVAQUIN) 500 MG tablet Take by mouth 1 (one) time each day Active Pseudoephedrine-D M-GG (ROBITUSSIN CF PO) Take by mouth Active doxycycline (VIBRAMYCIN) 100 MG capsule Take 100 mg by mouth 2 (two) times a day Take with a full glass of water and do not lie down for at least 30 minutes after. Active Polyethylene Glycol 3350 (MIRALAX MIX-IN PAX PO) Take by mouth Active clonazePAM (KlonoPIN) 1 MG tablet Take 3 mg by mouth 2 (two) times a day Active ALPRAZolam (XANAX) 1 MG tablet Active valsartan (Diovan) 80 MG tablet Take 1 tablet (80 mg total) by mouth 1 (one) time each day 30 tablet 1 Active ondansetron (ZOFRAN) 4 MG tablet Take 1 tablet (4 mg total) by mouth every 8 (eight) hours if needed for nausea or vomiting 20 tablet 2 1 Active clotrimazole-beta methasone (LOTRISONE) cream 1 Active Active Problems Problem Noted Date Diagnosed Date Hypo-osmolality and hyponatremia 01/27/2021 Family History Medical History Relation Comments Diabetes Father Relation Status Comments Father Social History Tobacco Use Types Packs/Day Years Used Date Smoking Tobacco: Former Smokeless Tobacco: Never Alcohol Use Standard Drinks/Week Comments Yes 0 (1 standard drink = 0.6 oz pur e alcohol) Comments Unknown Sex and Gender Information Value Date Recorded Sex Assigned at Not on file Legal Sex Female 9:35 AM EDT Gender Identity Not on file Sexual Orientation Not on file Last Filed Vital Signs Vital Sign Reading Time Taken Comments Blood Pressure 122/60 01/27/2021 2:16 PM EST Pulse 72 01/27/2021 2:16 PM EST Temperature - - Respiratory Rate - - Oxygen Saturation 97% 01/27/2021 2:16 PM EST Inhaled Oxygen Concentration - - Weight 65.1 kg (143 lb 9.6 oz) 01/27/2021 2:16 P M EST Height - - Body Mass Index - - Plan of Treatment Health Maintenance Due Date Last Done Comments Breast Cancer Screening 1950 Colorectal Cancer Screening: Annual FOBT 2000 Colorectal Cancer Screening: Colonoscopy 2000 Colorectal Cancer Screening: Sigmoidoscopy 2000 Pneumococcal Vaccine: 65+ Ye ars (1 of 1 - PCV) 2016 Influenza Vaccine (#1) 2023 Hepatitis B Vaccine Aged Out No longe r eligible based on patient's age to complete this topic Insurance [facility] ([id number]) [facility] ([id number]) Care Teams Lab Support Tech Relationship Specialty Start Date End Date Ananth Fung MD [address] [place] [address] PCP - General Internal Medicine 10/27/20
--- OUTSIDE RECORDS SUMMARY | 2024-03-11 12:36 | XMS_ITS ---
Author Organization [facility] Address [address] [place] [address] Care Team Providers Care Industrial Relations Counselor Name Role Phone Ananth Fung MD Primary Care Provider Unavailab Clifford Woodall Jr [phone] REASON FOR VISIT epigastric pain Encounters Encounter Location Date Provider Diagnosis [facility] [place] Out[place] [address] [place] [id number] 03/11/2024 Clifford Francis Jr PLAN OF TREATMENT Next Appt Details Provider Name:Clifford castanon Jr, 03/11/2024 01:20:00 PM, [address] [place] [address], [phone],
--- OUTSIDE RECORDS SUMMARY | 2024-03-11 12:36 | XMS_ITS | Encounter Summary ---
Author Organization [facility] Address [address] [place] [address] Phone Care Team Providers Care County Health Officer Name Role Phone Ananth Fung MD Primary Care Provider [phone] Encounter Details Date Type Department Care Team (Late st Contact Info) Description 12/23/2020 Telephone [facility] [address] [place] [address] Kennedi Bridges Social History Tobacco Use Types Packs/Day Years Used Date Smoking Tobacco: Former Smokeless Tobacco: Never Alcohol Use Standard Drinks/Week Comments Yes 0 (1 standard drink = 0.6 oz pur e alcohol) Comments Unknown Sex and Gender Information Value Date Recorded Sex Assigned at Not on file Legal Sex Female 9:35 AM EDT Gender Identity Not on file Sexual Orientation Not on file documented as of this encounter Plan of Treatment Not on file documented as of this encounter Visit Diagnoses Not on filedocumented in this encounter Care Teams County Health Officer Relationship Specialty Start Date End Date Ananth Fung MD [address] [place] [address] PCP - General Internal Medicine 10/27/20 documented as of this encounter
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
--- OUTSIDE RECORDS SUMMARY | 2024-03-11 12:36 | XMS_ITS ---
Author Organization [facility] Address [address] [place] [address] Care Team Providers Care Tenter Frame Back Tender Name Role Phone Ananth Fung MD Primary Care Provider UnavailClifford Sinclair Jr Unavailable ALLERGIES Allergen (clinical drug ingredient) Drug/Non Drug Allergy documented on EMR Reaction Allergy Type Onset Date Status Penicillin Unknown Drug Allergy Active Wellbutrin Unknown Drug Allergy Active fluoxetine PROzac Unknown Drug Allergy Active 12 Hour Nasal [place] Unknown Drug Allergy Active REASON FOR VISIT Patient presents today for ACID REFLUX, SELF INDUCED PER PATIENT MEDICATIONS Medication SIG (Take, Route, Fr equency, [...] unspecified whether esophagitis present (K21.9) Active confirmed [id number] Problem Epigastric pain (R10.13) Active confirmed [id number] VITAL SIGNS BMI 24.58 kg/m2 03/06/2024 Blood pressure systolic 00 mm Hg 03/06/19 25 Blood pressure diastolic 00 mm Hg 025 Height 5 ft 5.5 in in 03/06/2024 Weight 150 lbs 03/06/2024 Encounters Encounter Location Date Provider Diagnosis [facility] [address] [place] [address] 03/06/2024 Clifford Francis Jr Epigastric pain R10.13 and Gastroesophageal reflux disease, unspecified whether esophagitis present K21.9 ASSESSMENTS Encounter Date Diagnosis Assessment Notes Treatment Notes Treatment Clinical Notes 03/06/2024 Epigastric pain (ICD -10 - R10.13) Endoscopy material was printed 03/06/2024 Gastroesophageal ref lux disease, unspecified whether esophagitis present (ICD-10 - K21.9) PLAN OF TREATMENT Treatment Notes Assessment Notes Epigastric pain Endoscopy material w as printed Future Test Test Name Order Date UPPER GI ENDOSCOPY 03/06/2024 Next Appt Details Follow Up: prn, Reason: Provider Name:Clifford castanon Jr, 03/11/2024 01:20:00 PM, [address] [place] [address] , [place], [phone], Progress Notes * Examination Category Sub-Category Detail Notes General Examination GENERAL APPEARANCE: in no ac [facility] [facility] distress, anxious HEAD: normocephalic EYES: sclera non-icteric NECK/THYROID: no lymphadenopathy HEART: S1, S2 normal, no mu rmurs CHEST: normal shape and exp ansion LUNGS: clear to auscultatio n bilaterally ABDOMEN: soft, nontender, non distended, bowel sounds present, no organomegaly SKIN: anicteric EXTREMITIES: no clubbing, cyanosi s, or edema PSYCH: cognitive function i ntact ORAL CAVITY: mucosa moist
--- NOTE | 2024-03-11 13:08 | MHC.SHP ---
Pre-Procedural Eval Section A - 24 Hr Update-Section A only Date of Service: 03/11/24 The patient is an INPATIENT: No Changes since office visit: No Cold of Flu in the past 2 weeks, No New Medical Problems, No Changes in Medication and No Patient answered all questions The patient has been examined within 24 hours of the surgical procedure. The History & Physical has been completed within 30 days and I have reviewed it.: Yes Section B - Complete if H&P > 30 days Chief Complaint: Epigastric pain Allergies: Allergies Allergy/AdvReac Type Severity Reaction Status Date / Time penicillin G Allergy Unknown pt unsure Verified 12/09/21 10:45 Plan I have reviewed the history and physical and performed a pertinent physical examination on my patient. No changes have occurred unless specified. Time Spent With Patient Time: Total time managing care of this patient today ____ minutes.
[2024-03-11 13:43] VITALS: BP 148/65; PULSE 78; RESP 14; TEMP 37; O2SAT 97
[2024-03-11 13:58] VITALS: BP 179/82; PULSE 68; RESP 16; O2SAT 97
--- NOTE | 2024-03-11 14:08 | OP_ITS ---
DATE OF SERVICE: 03/11/2024 SURGEON: Clifford Francis MD INDICATIONS: Epigastric pain and gastroesophageal reflux disease. PREOPERATIVE DIAGNOSIS: POSTOPERATIVE DIAGNOSIS: PROCEDURE PERFORMED: Upper endoscopy with biopsy. ESTIMATED BLOOD LOSS: COMPLICATIONS: ANESTHESIA: Monitored anesthesia care. ASSISTANTS: SPECIMENS: DESCRIPTION OF PROCEDURE: A history and physical was performed. The risks and benefits of the procedure were explained to the patient and informed consent was obtained. The patient was placed in the left lateral decubitus position. The Olympus video gastroscope was introduced into the esophagus, stomach, and duodenum. Examination was performed and the scope was removed. She tolerated the procedure well and was returned to recovery area in stable condition. FINDINGS: Esophagus: The esophagus showed an irregular EG junction. There was no esophagitis. This was biopsied. Stomach: The stomach showed multiple benign-appearing gastric polyps measuring less than 10 mm. These were present in the body of the fundus consistent with fundic gland polyps. Two of these were biopsied. There was a small sliding hiatal hernia. Antral biopsies were obtained to evaluate for H pylori. Duodenum: The bulb and 2nd portion were normal. Random biopsies were obtained from the 2nd portion to evaluate for celiac disease. IMPRESSION: 1. Gastroesophageal reflux disease. 2. Gastric polyps. RECOMMENDATION: Follow up the biopsy results. MD OSMANI Sheikh/PRISCILLA / [id number]
[2024-03-11 14:10] VITALS: BP 176/87; PULSE 68; RESP 16; TEMP 36.9; O2SAT 98
== END 2024-03-11 14:30 | disposition home or self-care (01) ==
PROVIDERS: PCP Internal Medicine; Visit Provider Internal Medicine Gastroenterology
PROC: 0DJ08ZZ Inspection of Upper Intestinal Tract, Via Natural or Artificial Opening Endoscopic (ICD-10-PCS; CPT 43235; principal; 2024-03-11 13:20)
DX: R10.13 Epigastric pain (principal); K21.9 Gastro-esophageal reflux disease without esophagitis; K31.7 Polyp of stomach and duodenum; K22.89 Other specified disease of esophagus; K44.9 Diaphragmatic hernia without obstruction or gangrene
CPT/HCPCS: 43239; 88305; 88313; 88342; J2003; J2704

== ENCOUNTER 2024-06-24 14:09 | Outpatient (REF) | payer MEDICARE, SELFPAY ==
--- NOTE | ~2024-06-24 | XR_ITS ---
EXAMINATION: XR LUMBOSACRAL SPINE CLINICAL INFORMATION: LOW BACK PAIN COMPARISON: None available. TECHNIQUE: Three views of the lumbosacral spine. FINDINGS: Multilevel marginal osteophyte formation and endplate sclerosis decreased intervertebral disc height and subchondral cyst formation more pronounced at L5-S1 and L4-5 level. Grade 1 retrolisthesis L3-4. Mild superior endplate compression deformity representing 20% volume loss at L1. Osteopenia versus osteoporosis. XR/XR lumbar spine 2-3V IMPRESSION: Multilevel thoracolumbar spondylosis resulting in grade 1 retrolisthesis L3-4. Electronically signed by: John Powell MD 06/24/2024 02:35 PM EDT
--- OUTSIDE RECORDS SUMMARY | 2024-06-24 15:23 | XMS_ITS ---
Author Organization [facility] Address [address] [place] [address] Care Team Providers Care Food Service Sales Representatives Name Role Phone Ananth Fung MD Primary Care Provider Unavailab eric Francis Jr, Clifford Brand REASON FOR VISIT results Medications Medication SIG (Take, Route, Fr equency, Duration) Notes Start Date End Date Status Dicyclomine HCl 10 MG 1 tablet Orally 2- 4 times a day 03/17/2024 Active Encounters Encounter Location Date Provider Diagnosis [facility] [address] [place] [phone] 03/14/2024 Clifford Francis Jr Plan Of Treatment Medication Medication Name Sig Start Date Stop Date Notes Dicyclomine HCl 10 MG 1 tablet Orally 2-4 times a day 04/2024 Progress Notes * TANIA ROJODOB: (74 yo F)Acc No.[id number]:03/14/2024 Patient:?DEMARCO ROJOIET :1950???Age:74 Y???Sex:Female Address:[address] , [place], [address] * Refills? Start Dicyclomine HCl Capsule, 10 MG, Orally, 120, 1 tablet, 2-4 times a day, Refills=6 Subjective: * Chief Complaints: * ???Results * Medical History:? * Surgical History:? * Hospitalization/Major Diagno stic Procedure:? * Medications:? Objective: Assessment: Plan: * Treatment: * Procedure Codes:? * true * Date:? Generated for Desirae juarez/Margie/Daphne on:?06/24/2024 03:22 PM EDT
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
--- OUTSIDE RECORDS SUMMARY | 2024-06-24 15:23 | XMS_ITS ---
Author Organization [facility] Address [address] [place] [address] Care Team Providers Care Buncher Hand Name Role Phone Ananth Fung MD Primary Care Provider Unavailab Clifford Woodall Jr Unavailable REASON FOR VISIT CT scan/update fyi. pt will try to get it at [facility] Encounters Encounter Location Date Provider Diagnosis [facility] [address] [place] [phone] 05/29/2024 Clifford Francis Jr Generalized abdominal pain R10.84 Assessments Encounter Date Diagnosis (ICD Code) Assessment Notes Treatment Notes Treatment Clinical Notes Section Notes 05/29/2024 Generalized abdominal pain (ICD-10 - R10.84) Plan Of Treatment Pending Test Test Name Order Date CT ABD & PELVIS WITH CONTRAST 05/29/2024 Progress Notes * TANIA ROJODOB: 2 (74 yo F)Acc No.[id number]:05/29/2024 Patient:?ALIA TANIA :1950???Age:74 Y???Sex:Female Address:[address] , [place], [address] Subjective: * Chief Complaints: * ???CT scan/update fyi. pt wi ll try to get it at [facility] * Medical History:? * Surgical History:? * Hospitalization/Major Diagno stic Procedure:? * Medications:? Objective: * Vitals:? * Physical Examination:? Assessment: * Assessment: 1.?Generalized abdominal yumi n - R10.84 (Primary)??? Plan: * Treatment: * Procedure Codes:? * true * Date:? Generated for Desirae juarez/Margie/Daphne on:?06/24/2024 03:22 PM EDT
--- OUTSIDE RECORDS SUMMARY | 2024-06-24 15:23 | XMS_ITS | Encounter Summary ---
Author Organization [facility] Address [address] [place] [address] Phone Care Team Providers Care Compliance Associate Name Role Phone Ananth Fung MD Primary Care Provider [phone] Encounter Details Date Type Department Care Team (Late st Contact Info) Description 12/23/2020 Telephone [facility] [address] [place] [address] Kennedi Bridges Social History Tobacco [...] on filedocumented in this encounter Care Teams Compliance Associate Relationship Specialty Start Date End Date Ananth Fung MD [address] [place] [address] PCP - General Internal Medicine 10/27/20 documented as of this encounter
--- OUTSIDE RECORDS SUMMARY | 2024-06-24 15:23 | XMS_ITS | Clinical Summary ---
Author Organization [facility] Address [address] [place] [address] Phone Care Team Providers Care Telephone Installer Name Role Phone Ananth Fung MD Primary Care Provider [phone] Allergies Active Allergy Reactions Criticality Noted Date [...] Colorectal Cancer Screening: Sigmoidoscopy 2000 Pneumococcal Vaccine: 50+ Ye ars (1 of 1 - PCV) 2001 Influenza Vaccine (Season Ended) 2024 Hepatitis B Vaccine Aged Out No longe r eligible based on patient's age to complete this topic Insurance [facility] ESTER Neri([id number]) [facility] PPO Blue([id number]) Care Teams Telephone Installer Relationship Specialty Start Date End Date Ananth Fung MD [address] [place] [address] PCP - General Internal Medicine 10/27/20
--- OUTSIDE RECORDS SUMMARY | 2024-06-24 15:23 | XMS_ITS ---
Author Organization [facility] Address [address] [place] [address] Care Team Providers Care Pie Topper Name Role Phone Ananth Fung MD Primary Care Provider Unavailab Clifford Woodall Jr [phone] REASON FOR VISIT dicylcomine Encounters Encounter Location Date Provider Diagnosis [facility] [address] [place] [address] 03/21/2024 Clifford Francis Jr Plan Of Treatment No Information Progress Notes * TANIA ROJODOB: 2 (74 yo F)Acc No.[id number]:03/21/2024 Patient:?DEMARCO ROJOIET :1950???Age:74 Y???Sex:Female Address:[address] , [place], [address] * true * Date:? Generated for Printi ng/Faxing/eTransmitting on:?06/24/2024 03:23 PM EDT
== END 2024-06-24 14:10 | disposition home or self-care (01) ==
LOC: HO.HMGCX 14:09
PROVIDERS: PCP Internal Medicine; Visit Provider Internal Medicine
DX: M54.50 Low back pain, unspecified (principal)
CPT/HCPCS: 72100

== ENCOUNTER → 2024-06-24 14:17 | Outpatient (BNV) | payer MEDICARE, SELFPAY | PROVIDERS: PCP Internal Medicine; Visit Provider Radiology Diagnostic Radiology | DX: M47.815 Spondylosis without myelopathy or radiculopathy, thoracolumbar region (principal) | CPT/HCPCS: 72100 ==

== ENCOUNTER 2024-08-04 06:07 | Outpatient (REF) | payer MEDICARE, SELFPAY ==
[2024-08-04 10:22] LABS: MANUAL DIFF FLAG NO
[2024-08-04 10:28] LABS: Basophils Absolute Auto 0.1 X10*3/uL (0.0-0.2); Basophils Percent Auto 1.8 % (0-2); Eosinophils Absolute Auto 0.3 X10*3/uL (0.0-0.4); Eosinophils Percent Auto 6.8 % (0-4); Hematocrit 36.4 % (37.0-47.0); Hemoglobin 12.2 g/dl (12.0-16.0); Imm Gran Abs Auto 0.01 X10*3/uL (0.00-0.03); Imm Gran Pct Auto 0.2 % (0.0-0.4); Lymphocytes Absolute Auto 1.6 X10*3/uL (1.2-4.9); Lymphocytes Percent Auto 35.4 % (20-40); Mean Corpuscular HGB Conc 33.5 g/dl (31.0-35.0); Mean Corpuscular Hemoglobin 30.6 pg (27.0-33.0); Mean Corpuscular Volume 91.2 fL (80.0-98.0); Mean Platelet Volume 9.7 fL (9.4-12.3); Monocytes Absolute Auto 0.6 X10*3/uL (0.1-1.2); Monocytes Percent Auto 13.1 % (2-11); Neutrophils Absolute Auto 1.9 x10*3/uL (2.0-8.3); Neutrophils Percent Auto 42.7 % (45-73); Platelet Count 543 X10*3/uL (160-400); Red Blood Count 3.99 X10*6/uL (4.20-5.50); White Blood Count 4.4 X10*3/uL (4.8-10.8)
[2024-08-04 11:09] LABS: Alanine Aminotransferase 22 U/L (0-31); Albumin Level 4.7 g/dL (3.5-5.0); Alkaline Phosphatase 75 U/L (39-117); Anion Gap 13 (12-20); Aspartate Amino Transferase 24 U/L (5-31); Bilirubin Total 0.3 mg/dL (0.0-1.0); Blood Urea Nitrogen 9 mg/dL (9-16); Calcium 9.5 mg/dL (8.4-10.2); Carbon Dioxide 28 mmol/L (22-29); Chloride 96 mmol/L (96-108); Cholesterol 200 mg/dL (<200); Estimated Glomerular Filt Rate > 60; Glucose Fasting 97 mg/dL (60-99); HDL Cholesterol 73 mg/dL (>40); LDL Cholesterol Calculated 109 mg/dL (<100); Potassium 4.2 mmol/L (3.3-5.1); Sodium 133 mmol/L (135-145); Total Protein 7.2 g/dL (6.5-8.0); Triglycerides 92 mg/dL (<150)
== END 2024-08-04 06:08 | disposition home or self-care (01) ==
LOC: HO.HMGCLDS 06:07
PROVIDERS: Visit Provider Internal Medicine
DX: Z00.00 Encounter for general adult medical examination without abnormal findings (principal); R53.83 Other fatigue; E78.5 Hyperlipidemia, unspecified
CPT/HCPCS: 36415; 80053; 80061; 85025

== ENCOUNTER 2024-08-26 13:33 | Outpatient (AMB) | payer MEDICARE, SELFPAY ==
--- NOTE | 2024-08-26 13:36 | A.OFFPC_ITS ---
Vital Signs 08/26/24 13:43 Height 5 ft 5.35 in Weight 150 lb BMI 24.7 BP 174/82 H Respiration 14 Pulse 66 Pulse Source Pulse Oximeter Temp 98.2 F Temp Source Temporal Artery Scan Pulse Oximetry (%) 99 Oxygen Delivery Method Room Air Intake Visit Reasons: Establish Care Nurse Coordinator Required: No Accompanied by: Self / Same As Patient Allergies penicillin G Allergy (Unknown, Verified 08/26/24 13:37) pt unsure Tobacco use date assessed: 08/26/24 Fall risk assessment: No Falls in past year Last assessed Fall Risk: 08/26/24 Dental Screening Dental Screen Date: 08/26/24 Did you have a dental visit in the last 12 months?: Yes Did you have a dental problem in the last 6 months where you did not have access to dental care?: No Was dental information given to patient?: Patient has dentist [facility] Medical History (Updated 08/26/24 @ 14:23 by Thomas Bateman MD) Anxiety GERD (gastroesophageal reflux disease) HTN (hypertension) High cholesterol Surgical History History of colonoscopy (~10/30/17) History of nasal surgery History of left inguinal hernia repair History of appendectomy Family History (Updated 08/26/24 @ 13:53 by XIOMARA Sanches) Father Diabetes Alcohol abuse Mother Dementia Social History (Updated 08/26/24 @ 13:54 by XIOMARA Sanches) Housing: House Alcohol intake: current Alcohol intake frequency: holidays/special occasions only Alcohol type: wine Patient Tobacco Use Status: Former Tobacco user service: No Current occupational status: retired Cognitive needs: No Hearing needs: No Vision needs: Yes (rx glasses) Questionnaire Thrive Questionnaire Date Thrive assessed: 08/26/24 I am a: Patient What is your living situation today?: I have a steady place to live Within the past 12 months, did the food you bought not last and you didn't have the money to get more?: Never true Within the past 12 months, did you worry whether your food would run out before you got money to buy more?: Never true Do you have trouble paying for medicines?: No Do you have trouble getting transportation to medical appointments?: No Do you have trouble paying your heating and electricity bill?: No Do you have trouble taking care of your child, family member or friend?: No Do you have trouble with day-to-day activities such as bathing, preparing meals, shopping, managing finances, etc.?: No Are you currently unemployed and looking for a job?: No Are you interested in more education?: No Please select the resources that you would like help with: None THRIVE Score: 0 AUDIT C Alcohol Use Questionnaire (AUDIT-C) 1. How often do you have a drink containing alcohol?: Monthly or less 2. How many drinks containing alcohol do you have on a typical day when you are drinking?: 1 or 2 3. How often do you have six or more drinks on one occasion?: Never Total Score: 1 Physical exam (Primary Care) Vital Signs: Last Vital Signs Temp 98.2 F 08/26/24 13:43 Pulse 66 08/26/24 13:43 Resp 14 08/26/24 13:43 BP 174/82 H 08/26/24 13:43 Pulse Ox 99 08/26/24 13:43 Oxygen Delivery Method Room Air 08/26/24 13:43 BMI result Body Mass Index 24.7 Tobacco/Smoking Status: Tobacco use Status Tobacco use date assessed 08/26/24 08/26/24 13:43 Patient Tobacco Use Status Former Tobacco user 08/26/24 13:56 PHQ-9: PHQ-9 Score PHQ-9: Total score 0 08/26/24 13:43 Thrive Assessment: Date of Thrive Assessment Date Thrive assessed 08/26/24 08/26/24 13:43 Coding Level of Care Code New Pt Level 4 (66558) Complex EM visit Add On G2211 Diagnoses Abdominal pain R10.9 Anxiety F41.9 Assessment & Plan Assessment & Plan (1) Abdominal pain: Code(s): R10.9 - Unspecified abdominal pain Plan: GI consult placed. (2) Anxiety: Code(s): F41.9 - Anxiety disorder, unspecified Category: Medical Plan: History of Present Illness - The patient is a 74-year-old female presenting with anxiety and depression management. - She has been experiencing anxiety due to her 's open heart surgery and her child's gender transition, affecting her stomach and causing significant stress. - An upper endoscopy revealed no abnormalities, and she was prescribed dicyclomine. - A history of hyponatremia was noted, induced by Prozac, requiring discontinuation and taking six months to resolve. - She has tried Wellbutrin with adverse effects and seeks psychiatric consultation for medication management. - Long-term use of Temazepam for insomnia has led to high tolerance, and Lorazepam use is being reduced. - Reports of depression and sadness are linked to family stressors. Social History - The patient has been for 52 years and has two children. 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 - Reports occasional alcohol use, consuming wine about three times a week. Review of Systems - Psychiatric: Reports anxiety and depression. Denies effective relief from current medications. - Gastrointestinal: Reports stress-related stomach issues. Denies findings on upper endoscopy. - Neurological: Reports insomnia despite long-term use of Temazepam. Physical Exam General: Cooperative and healthy appearing Nutritional Appearance: Well nourished Orientation/consciousness: Patient oriented x3 Limitations: No limitations Head: Normal to inspection General: Appearance normal, both eyes and all related structures Neck: Normal visual inspection Chest: Normal palpation of entire chest wall Respiratory: N ormal respiratory effort Neurology: Patient oriented x3, but reports anxiety and depression. Results - Upper Endoscopy: No abnormalities found. Plan 1. Anxiety - Reduce Lorazepam to 1 pill a day and refer to a psychiatrist for further management. 2. Hyponatremia - Hyponatremia resolved after discontinuation of Prozac; monitor sodium levels with blood work. 3. Insomnia - Continue Temazepam and reduce Lorazepam to avoid concurrent use. 4. Depression - Referral to a psychiatrist for evaluation and management of depression with potential SSRI therapy. Discussion Notes I discussed with the patient the importance of reducing Lorazepam to 1 pill a day to avoid concurrent use with Temazepam. We also talked about the need for a psychiatric referral to manage her anxiety and depression effectively. I emphasized the importance of monitoring her sodium levels due to her history of hyponatremia. We agreed on the necessity of blood work to assess her current health status and the potential for SSRI therapy under psychiatric guidance. Patient Instructions - Reduce Lorazepam to 1 pill a day. - Continue taking Temazepam as prescribed. - Follow up with a psychiatrist for anxiety and depression management. - Complete blood work as instructed, ensuring fasting before the test. 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
[2024-08-26 13:43] VITALS: BP 174/82; PULSE 66; RESP 14; TEMP 36.8; O2SAT 99; BMI 24.7
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
--- OUTSIDE RECORDS SUMMARY | 2024-08-26 14:54 | XMS_ITS | Encounter Summary ---
Author Organization [facility] Address [address] [place] [address] Phone Care Team Providers Care Senior Rd Engineer Name Role Phone Ananth Fung MD Primary Care Provider [phone] Encounter Details Date Type Department Care Team (Late st Contact Info) Description 12/23/2020 Telephone [facility] [address] [place] [address] Kennedi Bridges Social History Tobacco [...] on filedocumented in this encounter Care Teams Senior Rd Engineer Relationship Specialty Start Date End Date Ananth Fung MD [address] [place] [address] PCP - General Internal Medicine 10/27/20 documented as of this encounter
== END 2024-08-26 14:16 | disposition home or self-care (01) ==
LOC: HO.HMCSH 13:33
PROVIDERS: PCP Internal Medicine; Visit Provider Internal Medicine
DX: R10.9 Unspecified abdominal pain (principal); F41.9 Anxiety disorder, unspecified

== ENCOUNTER → 2024-08-26 13:33 | Outpatient (BNVA) | payer MEDICARE, SELFPAY | PROVIDERS: PCP Internal Medicine; Visit Provider Internal Medicine | DX: F32.4 Major depressive disorder, single episode, in partial remission (principal); F41.9 Anxiety disorder, unspecified; R10.9 Unspecified abdominal pain; E87.1 Hypo-osmolality and hyponatremia; G47.00 Insomnia, unspecified | CPT/HCPCS: 99202 ==

== ENCOUNTER 2024-08-28 06:11 | Outpatient (REF) | payer MEDICARE, SELFPAY ==
--- OUTSIDE RECORDS SUMMARY | 2024-08-28 06:13 | XMS_ITS | Encounter Summary ---
Author Organization [facility] Address [address] [place] [address] Phone Care Team Providers Care Auto Appraiser Name Role Phone Ananth Fung MD Primary Care Provider [phone] Encounter Details Date Type Department Care Team (Late st Contact Info) Description 12/23/2020 Telephone [facility] [address] [place] [address] Kennedi Bridges Social History Tobacco [...] on filedocumented in this encounter Care Teams Auto Appraiser Relationship Specialty Start Date End Date Ananth Fung MD [address] [place] [address] PCP - General Internal Medicine 10/27/20 documented as of this encounter
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
[2024-08-28 10:15] LABS: Hematocrit 37.9 % (37.0-47.0); Hemoglobin 12.7 g/dl (12.0-16.0); Mean Corpuscular HGB Conc 33.5 g/dl (31.0-35.0); Mean Corpuscular Hemoglobin 30.3 pg (27.0-33.0); Mean Corpuscular Volume 90.5 fL (80.0-98.0); NRBC Abs Auto 0.000 X10*3/uL (0.0-0.012); NRBC Pct Auto 0.0 /100WBC (0.0-0.2); Platelet Count 460 X10*3/uL (160-400); Red Blood Count 4.19 X10*6/uL (4.20-5.50); White Blood Count 5.2 X10*3/uL (4.8-10.8)
[2024-08-28 10:48] LABS: Alanine Aminotransferase 22 U/L (0-31); Albumin Level 4.9 g/dL (3.5-5.0); Alkaline Phosphatase 91 U/L (39-117); Anion Gap 14 (12-20); Aspartate Amino Transferase 25 U/L (5-31); Blood Urea Nitrogen 7 mg/dL (9-16); Calcium 9.4 mg/dL (8.4-10.2); Carbon Dioxide 28 mmol/L (22-29); Chloride 98 mmol/L (96-108); Cholesterol 218 mg/dL (<200); Estimated Glomerular Filt Rate > 60; HDL Cholesterol 89 mg/dL (>40); Potassium 4.5 mmol/L (3.3-5.1); Sodium 135 mmol/L (135-145); Total Protein 7.6 g/dL (6.5-8.0); Triglycerides 72 mg/dL (<150)
[2024-08-28 11:04] LABS: Thyroid Stimulating Hormone 3.43 uIU/mL (0.32-4.0)
[2024-08-28 14:51] LABS: Appearance Urine Clear; Glucose Urine UA Negative (Negative); PH 7.0 (5.0-9.0); Specific Gravity - Urine 1.010 (1.005-1.025); UMIC TRIGGER UA YES
== END 2024-08-28 06:12 | disposition home or self-care (01) ==
LOC: HO.HMGCLDS 06:11
PROVIDERS: PCP Internal Medicine; Visit Provider Internal Medicine
DX: F41.9 Anxiety disorder, unspecified (principal)
CPT/HCPCS: 36415; 80048; 80061; 80076; 81001; 81003; 84443; 85027

== ENCOUNTER 2024-08-29 14:07 | Outpatient (REF) | payer MEDICARE, SELFPAY ==
--- NOTE | ~2024-08-29 | MM_ITS ---
EXAMINATION: MM SCREENING DIGITAL BREAST TOMOSYNTHESIS, BILATERAL CLINICAL INFORMATION: Screening. Asymptomatic. COMPARISON: Mammography: Comparison is made with available priors TECHNIQUE: Digital breast mammography with tomosynthesis is performed in both the craniocaudal and mediolateral oblique views along with computer-aided detection (CAD). FINDINGS: The breasts are heterogeneously dense, which may obscure small masses (ACR BI-RADS breast composition Category c). There are no significant masses, abnormal calcifications, or other abnormalities. MM/MM tomosynthesis screening BI IMPRESSION: No mammographic evidence of malignancy. ASSESSMENT: BI-RADS BI-RADS 1 - Negative RECOMMENDATION: Routine annual mammography screening. 1 year F/U This examination should not preclude the clinical evaluation of a suspicious palpable abnormality. This patient's information was entered into a reminder system with a target due date for their next mammogram. Electronically signed by: Leisa Tesfaye DO 09/09/2024 09:14 AM EDT
--- NOTE | ~2024-08-29 | MM_ITS ---
EXAMINATION: DXA BONE DENSITY AXIAL HISTORY: Post-menopausal TECHNIQUE: Vizify Dual energy absorptiometry (DEXA) of the lumbar spine, total left hip, and femoral neck was performed. COMPARISON: Comparison is made with the prior examination dated 06/28/2021. FINDINGS: The bone mineral density of the lumbar spine is 0.899 g/cm2, corresponding to a T-score of -2.2, and a Z-score of -0.6. This is indicative of osteopenia. This represents a BMD change of -2.8% compared to the prior exam. This is not statistically significant. The bone mineral density of the left total hip is 0.830 g/cm2, corresponding to a T-score of -1.4, and a Z-score of 0.2. This is indicative of osteopenia. This represents a BMD change of -1.0% compared to the prior exam. This is not statistically significant. The bone mineral density of the left femoral neck is 0.722 g/cm2, corresponding to a T-score of -2.3, and a Z-score of -0.5. This is indicative of osteopenia. This represents a BMD change of -3.0% compared to the prior exam. FRACTURE RISK: The FRAX index suggests a ten year probability of major osteoporotic fracture of 14.9%, and of hip fracture 4.0%. MM/XR DEXA axial skeleton IMPRESSION: Based on bone mineral density, and according to World Health Organization (WHO) criteria, the diagnosis is consistent with osteopenia. Statistically, 68% of repeat scans fall within 1 SD (+/- 0.010 g/cm2 for AP spine L1-L4) and 1 SD (+/- 0.012 g/cm2 for femur total) FRAX is a trademark of the [employer] [place] [employer] Metabolic Bone Disease, a World Health Organization (WHO) Collaborating Center. Electronically signed by: Ricardo Villalobos MD 08/29/2024 02:52 PM EDT
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
--- OUTSIDE RECORDS SUMMARY | 2024-08-29 14:09 | XMS_ITS | Encounter Summary ---
Author Organization [facility] Address [address] [place] [address] Phone Care Team Providers Care Sole Layer Hand Name Role Phone Ananth Fung MD Primary Care Provider [phone] Encounter Details Date Type Department Care Team (Late st Contact Info) Description 12/23/2020 Telephone [facility] [address] [place] [address] Kennedi Bridges Social History Tobacco [...] on filedocumented in this encounter Care Teams Sole Layer Hand Relationship Specialty Start Date End Date Ananth Fung MD [address] [place] [address] PCP - General Internal Medicine 10/27/20 documented as of this encounter
== END 2024-08-29 14:08 | disposition home or self-care (01) ==
LOC: HO.MAMMO 14:07
PROVIDERS: PCP Internal Medicine; Visit Provider Internal Medicine
DX: Z12.31 Encounter for screening mammogram for malignant neoplasm of breast (principal); Z13.820 Encounter for screening for osteoporosis; Z78.0 Asymptomatic menopausal state
CPT/HCPCS: 77063; 77067; 77080

== ENCOUNTER → 2024-08-29 14:30 | Outpatient (BNV) | payer MEDICARE, SELFPAY | PROVIDERS: PCP Internal Medicine; Visit Provider Radiology Diagnostic Radiology | DX: E28.39 Other primary ovarian failure (principal) | CPT/HCPCS: 77080 ==

== ENCOUNTER 2024-09-11 09:12 | Outpatient (AMB) | payer MEDICARE, SELFPAY ==
--- NOTE | 2024-09-11 09:27 | MHC.OFFVIS ---
Intake Visit Reasons: Sooner appt, worsening symptoms Allergies penicillin G Allergy (Unknown, Verified 08/26/24 13:37) pt unsure Medication List - Last Reconciled 09/11/24 by Bonnie Lopez MD alprazolam 1 mg PO DAILY PRN calcium carbonate 600 mg PO DAILY cholecalciferol (vitamin D3) 25 mcg PO DAILY dicyclomine 10 mg PO omeprazole 40 mg PO DAILY temazepam 30 mg PO BEDTIME PRN valsartan 80 mg PO DAILY HPI Comments Details: 74 yo RH woman with chronic insomnia and anxiety, and family related stress resulting in significant anxiety and IBS type of symptoms. Her situation especially worsened around 2023. More recently, she was investigated and treated for IBS and related to that she had a course of treatment with mutile antibiotics, including metrinadazole and rifaximin for two weeks. While she was on this regimen, she developed new symptoms of numbness and tingling, brain fog, tinnitus, diarrhea, and unsteadiness. After about 10 days of stopping, some symptoms got better but then she had a glass of wine and symptoms returned almost immediately. She had a glass of wine again and noted symptoms recurring. Her main symptoms now are numbness and tingling in hands and feet, brain fog with difficulty holding on to a thought, and tinnitus. Her sleep is not good. She is still feeling nervous and stressed. [facility] Medical History (Updated 09/11/24 @ 09:40 by Bonnie Lopez MD) Anxiety GERD (gastroesophageal reflux disease) HTN (hypertension) High cholesterol Surgical History History of colonoscopy (~10/30/17) History of nasal surgery History of left inguinal hernia repair History of appendectomy Family History (Updated 08/26/24 @ 13:53 by XIOMARA Sanches) Father Diabetes Alcohol abuse Mother Dementia Social History (Updated 08/26/24 @ 13:54 by XIOMARA Sanches) Housing: House Alcohol intake: current Alcohol intake frequency: holidays/special occasions only Alcohol type: wine Patient Tobacco Use Status: Former Tobacco user service: No Current occupational status: retired Cognitive needs: No Hearing needs: No Vision needs: Yes (rx glasses) Review of Systems Const Details: He complain of difficulty sleeping, anxiety, numbness and tingling, tinnitus, brain fog and fatigue. Physical Exam Neuro Other: Mental Status: Alert and oriented to person, place, and time. Normal attention. Normal spontaneous speech, fluency, and comprehension. CN II: Visual gibson full to confrontation, visual acuity intact. CN III, IV, : Pupils equal, round, reactive to light and accommodation. Extraocular movements are normal. CN V: Facial sensation is normal. CN VII: Facial movements symmetrical. CN VIII: Hearing intact to bedside conversation is normal. CN IX, X: Palate elevates symmetrically. CN XI: Shoulder shrug and head turn symmetrical. CN XII: Tongue midline without atrophy or fasciculations. Motor: Deep tendon reflexes are trace to absent. Plantars are flexor. Dujtwg-ti-kvmv testing revealed mild bilateral ataxia. Ienf-xz-sqqu testing is okay. Gait: Mildly wide-based gait. Extrapyramidal: Full facial expressions and blinking. No rigidity. Movements are appropriate with no tremor or abnormality. Speech: Normal; no dysarthria or tremor. 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 She was investigated for IBS, diagnosed with an infection and was treated with two weeks course of antibiotics, which may also cause some of these symptoms, at least transiently. Her main issue is chronic stress/anxiety disorder and alcohol drinking. There are signs of both central and peripheral nervous system injury from it causing numbness, tingling, unsteadiness, and cognitive symptoms. Rec: a: Quit or minimize alcohol use b: Appropriate treatment of anxiety disorder c: B12/folate, immunofixation, Lyme test to r/o an alternate cause, which seems less likely d: EMG/NCS lower extremities to classify and grade neuropathy e: MRI brain w/o Orders: Orders MR head/brain wo con Today F10.97 - Alcohol use, unspecified with alcohol-induced persisting dementia Vitamin B12 and Folate Today G62.2 - Polyneuropathy due to other toxic agents Immunofixation Pnl, Serum Today G62.2 - Polyneuropathy due to other toxic agents Lyme IgG/IgM w/reflex to WB Today G62.2 - Polyneuropathy due to other toxic agents Coding Level of Care Code Tele New Pt Level 5 (04150) Diagnoses Chronic alcoholic brain syndrome F1 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
--- OUTSIDE RECORDS SUMMARY | 2024-09-11 09:29 | XMS_ITS | Encounter Summary ---
Author Organization [facility] Address [address] [place] [address] Phone Care Team Providers Care Rehab Spec Name Role Phone Ananth Fung MD Primary Care Provider [phone] Encounter Details Date Type Department Care Team (Late st Contact Info) Description 12/23/2020 Telephone [facility] [address] [place] [address] Kennedi Bridges Social History Tobacco [...] on filedocumented in this encounter Care Teams Rehab Spec Relationship Specialty Start Date End Date Ananth Fung MD [address] [place] [address] PCP - General Internal Medicine 10/27/20 documented as of this encounter
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
== END 2024-09-11 10:01 | disposition home or self-care (01) ==
LOC: HO.HSM 09:13
PROVIDERS: PCP Internal Medicine; Visit Provider Psychiatry & Neurology Neurology
DX: F10.97 Alcohol use, unspecified with alcohol-induced persisting dementia (principal); G62.2 Polyneuropathy due to other toxic agents; R26.89 Other abnormalities of gait and mobility
CPT/HCPCS: 99204

== ENCOUNTER 2024-09-11 09:12 | Outpatient (REF) | payer MEDICARE, SELFPAY ==
[2024-09-11 10:56] LABS: Appearance Urine Clear; Glucose Urine UA Negative (Negative); PH 7.0 (5.0-9.0); Specific Gravity - Urine 1.010 (1.005-1.025)
[2024-09-11 12:05] LABS: Folate 13.5 ng/mL (> or = 4.0); Vitamin B12 928 pg/mL (200-900)
[2024-09-12 10:50] LABS: Lyme Abs Screen <0.90 index
== END 2024-09-11 09:13 | disposition home or self-care (01) ==
LOC: HO.LAB 09:12
PROVIDERS: PCP Internal Medicine; Visit Provider Psychiatry & Neurology Neurology
DX: F10.97 Alcohol use, unspecified with alcohol-induced persisting dementia (principal); R26.89 Other abnormalities of gait and mobility; Z01.84 Encounter for antibody response examination; F41.9 Anxiety disorder, unspecified; G62.2 Polyneuropathy due to other toxic agents; Z63.8 Other specified problems related to primary support group; Z79.899 Other long term (current) drug therapy; Z79.2 Long term (current) use of antibiotics
CPT/HCPCS: 36415; 81003; 82607; 82746; 82784; 86334; 86617; 86618; 99202

== ENCOUNTER 2024-09-16 13:27 | Outpatient (AMB) | payer MEDICARE, SELFPAY ==
[2024-09-16 13:43] VITALS: BP 140/82; PULSE 77; RESP 12; O2SAT 98
--- NOTE | 2024-09-16 13:43 | AM.OFFWIN_ITS ---
Intake Vital Signs 09/16/24 13:43 09/16/24 13:52 Height 5 ft 5 in Weight 148 lb 2 oz BMI 24.6 BP 140/82 H 151/88 H Blood Pressure Location Lt brachial Rt brachial Position Sitting Sitting Respiration 12 Pulse 77 80 Pulse Source Pulse Oximeter Pulse Oximeter Temp 98.3 F Temp Source Oral Pulse Oximetry (%) 98 97 Oxygen Delivery Method Room Air Room Air Intake Visit Reasons: EP High BP, headache, dizzy, not feeling well Intake Note: Pt came in c/o blood pressure 210/101 at home this am. Pt stated that she took her medication Valsartan and Xanax this am. Bowel movement (black, took Peptobismul) x 1 this am. Pt denies any headache, dizziness, nausea/vomiting at this time. Pt stated that she is under a lot of stress because she is trying to be supportive of her son who is having a gender change. Pt spoke in full sentences. Lungs - cta. Heart sounds - regular. Please see vss. Emily Leal (RENÉ) aware. 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 - Increased anxiety due to familial stre ss, history of alprazolam and temazepam use. - Numbness and tingling in hands, linked to metronidazole use and alcohol. - Increased wine consumption due to anxi ety, now abstinent. - Severe hyponatremia on Prozac, sodium dropped to 111 mmol/L. Also experienced bad side effects from Wellbutrin - Denies headaches, chest pain and dizzy iness. Physical Exam General: Cooperative, healthy appearing, comfortable, no acute distress and well developed Orientation: Patient oriented x3 Limitations: No limitations Head: Normal to inspection Ears: Hearing grossly normal bilaterally Nose: Normal External nose present Face and sinus: Normal facial exam Eyes: Appearance normal, both eyes and all related structures Neck: Normal visual inspection and Yes full ROM Respiratory: Normal respiratory effort and able to speak in complete sentences. Skin: No rashes or lesions noted Neuro: A&O x3, Extremities: moving all extremities normally [facility] Medical History (Updated 09/11/24 @ 09:40 by Bonnie Lopez MD) Anxiety GERD (gastroesophageal reflux disease) HTN (hypertension) High cholesterol Surgical History History of colonoscopy (~10/30/17) History of nasal surgery History of left inguinal hernia repair History of appendectomy Family History (Updated 08/26/24 @ 13:53 by XIOMARA Sanches) Father Diabetes Alcohol abuse Mother Dementia Social History (Updated 08/26/24 @ 13:54 by XIOMARA Sanches) Housing: House Alcohol intake: current Alcohol intake frequency: holidays/special occasions only Alcohol type: wine Patient Tobacco Use Status: Former Tobacco user Patient : No service: No Current occupational status: retired Cognitive needs: No Hearing needs: No Vision needs: Yes (rx glasses) Review of Systems Const All systems reviewed & are unremarkable except as noted in HPI and below Physical Exam Vital Signs: Last Vital Signs Temp 98.3 F 09/16/24 13:52 Pulse 80 09/16/24 13:52 Resp 12 09/16/24 13:43 BP 151/88 H 09/16/24 13:52 Pulse Ox 97 09/16/24 13:52 Oxygen Delivery Method Room Air 09/16/24 13:52 BMI result Body Mass Index 24.6 Assessment & Plan Assessment & Plan (1) Anxiety: Code(s): F41.9 - Anxiety disorder, unspecified Plan: Plan - BP's relatively normal today in the clinic and pt asymptomatic. - Monitor blood pressure at home, no indication to increase antihypertensive medication, best to manage her anxiety. - Has a referral to psychiatry. Will give the patient information on how to make the appointment, information on emergency services and in the moment coping mechanisms, Nadia Blanco spoke with the patient and her . She will send a referral for therapy as well. - Continue abstinence from alcohol, explore alternative coping mechanisms. Patient was informed and verbally consented to the use of an ambient scribe for clinic note documentation during this visit. Coding Level of Care Code Est Pt Level 4 (02658) Diagnoses Anxiety F41.9
[2024-09-16 13:52] VITALS: BP 151/88; PULSE 80; TEMP 36.8; O2SAT 97; BMI 24.6
--- OUTSIDE RECORDS SUMMARY | 2024-09-16 14:06 | XMS_ITS | Encounter Summary ---
Author Organization [facility] Address [address] [place] [address] Phone Care Team Providers Care Plum Packer Name Role Phone Ananth Fung MD Primary Care Provider [phone] Encounter Details Date Type Department Care Team (Late st Contact Info) Description 12/23/2020 Telephone [facility] [address] [place] [address] Kennedi Bridges Social History Tobacco [...] on filedocumented in this encounter Care Teams Plum Packer Relationship Specialty Start Date End Date Ananth Fung MD [address] [place] [address] PCP - General Internal Medicine 10/27/20 documented as of this encounter
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
== END 2024-09-16 16:09 | disposition home or self-care (01) ==
PROVIDERS: PCP Internal Medicine; Visit Provider Physician Assistant
DX: F41.9 Anxiety disorder, unspecified (principal)

== ENCOUNTER → 2024-09-16 13:27 | Outpatient (BNVA) | payer MEDICARE, SELFPAY | PROVIDERS: PCP Internal Medicine; Visit Provider Physician Assistant | DX: I10 Essential (primary) hypertension (principal); R51.9 Headache, unspecified; R42 Dizziness and giddiness; F41.9 Anxiety disorder, unspecified; Z79.899 Other long term (current) drug therapy | CPT/HCPCS: 99212 ==

== ENCOUNTER 2024-09-18 13:04 | Outpatient (AMB) | payer MEDICARE, SELFPAY ==
--- NOTE | 2024-09-18 13:05 | MHC.OFFVISPS ---
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 Pt noted negative side effects from Wellbutrin and feels current medications are not effective. Pt in need of an evaluation for medication optimization. A history of hyponatremia was noted, induced by Prozac, requiring discontinuation and taking six months to resolve. She has tried Wellbutrin with adverse effects and seeks psychiatric consultation for medication management. Long-term use of Temazepam for insomnia has led to high tolerance, and Lorazepam use is being reduced. Reports of depression and sadness are linked to family stressors. 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 She was also on xifaxan at the time for IBS. Past Psychiatric History: Pt seen in past by Dr Petey Eller outpt. trialed on wellbutrin - negative side effects, prozac caused hyponatremia. afraid to try recommended duloxetine due to hyponatremai. Subjective Subjective Subjective Medication Compliance: Yes Side effects from medications: No Review of Systems Medical Review of Systems: unchanged Mental Status Exam Mental Status Exam Patient Appearance: Well Grooomed and Appropriate Patient Orientation: Person, Place, Time and Situation Level of Consciousness: Awake, Appropriate and Alert Patient Behavior: Appropriate, Cooperative and Anxious Mood Description: Anxious, Nervous, Apprehensive and Expansive Affect Description: Anxious, Nervous and Expansive Patient Cognition Impaired: No Ability to Follow Directions: Good Speech Pattern: Clear, Perseverating, Coherent and Excessive Hallucinations: None Delusions: Not Present Thought Process: Rumination Thought Content: positive for Preoccupation Judgement: Fair Results Reviewed Results Reviewed: review of neurology note, review of labs and pcp notes Assessment and Plan Assessment & Plan (1) Anxiety: Status: Acute Code(s): F41.9 - Anxiety disorder, unspecified (2) Alcohol abuse: Status: Acute Code(s): F10.10 - Alcohol abuse, uncomplicated Plan no change to meds at this time pt to follow up with imaging thats has been ordered lab work ordered stay away from all alcohol return in 2-4 weeks Medications: Changed From alprazolam 1 mg PO BID PRN anxiety To alprazolam 1 mg PO BID PRN 42 tabs 0RF anxiety 21 days Orders: Orders Vitamin B1 09/18/24 F41.9 - Anxiety disorder, unspecified, 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 Self Management counseling: Med illness tx adherence, Mod caffeine/ETOH intake, Nutrition education and improvement, Sleep hygiene and General coping skills Medication management counseling: Effectiveness, Side effects, Dosing range, Duration, Drug interaction and Adherence Details-Med Mgmt counseling: education re: joint terminal attack controller use of benzodiazepines and etoh use Diagnosis and Prognosis Counseling: Accuracy of diagnosis, Prognosis over time, Impact of diagnosis on life functions, Impact of family relationship, Problematic behaviors secondary to diagnosis and Adequacy of current interventions Details: I spent 90 minutes reviewing the record, seeing the patient and documenting in the medical record. Counseling provided to the patient/caregiver as outlined below. Addressed patient/caregiver concerns regarding current medication regime including effective adherence. Addressed patient/caregiver concerns regarding diagnosis and prognosis including accuracy of diagnosis, prognosis over time, impact of diagnosis. Addressed patient/caregiver concerns regarding impact of recent stressors. [facility] Medical History (Updated 09/23/24 @ 13:14 by Deanna Baldwin [facility]) Numbness in both hands Ringing in ears Anxiety GERD (gastroesophageal reflux disease) HTN (hypertension) High cholesterol Surgical History History of colonoscopy (~10/30/17) History of nasal surgery History of left inguinal hernia repair History of appendectomy Family History (Updated 08/26/24 @ 13:53 by XIOMARA Sanches) Father Diabetes Alcohol abuse Mother Dementia Social History (Updated 08/26/24 @ 13:54 by XIOMARA Sanches) Housing: House Alcohol intake: current Alcohol intake frequency: holidays/special occasions only Alcohol type: wine Patient Tobacco Use Status: Former Tobacco user service: No Current occupational status: retired Cognitive needs: No Hearing needs: No Vision needs: Yes (rx glasses) Social History: 53 yrs. 2 adult children Has a daughter who transitioned from male to female. Daughter had leukemia in 1999 which was very frightening for family. Daughter lives at home with her and . pt has been supportive and gone to all daughter's medical appts for leukemia and transition. 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 Substance History: daily alcohol use until 1.5 weeks ago when told she had etoh dementia. she reports regular use of 2-3 glasses of wine and 1-2 shots of vodka daily to several times a week for years. No other drug use Trauma History: lived in [place] during 10/23 Coding Level of Care Code Psych Diag Eval w/Med (56475) Diagnoses Anxiety F41.9 Alcohol abuse F10.10
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
--- OUTSIDE RECORDS SUMMARY | 2024-09-18 13:07 | XMS_ITS | Encounter Summary ---
Author Organization [facility] Address [address] [place] [address] Phone Care Team Providers Care Sagger Soak Name Role Phone Ananth Fung MD Primary Care Provider [phone] Encounter Details Date Type Department Care Team (Late st Contact Info) Description 12/23/2020 Telephone [facility] [address] [place] [address] Kennedi Bridges Social History Tobacco [...] on filedocumented in this encounter Care Teams Sagger Soak Relationship Specialty Start Date End Date Ananth Fung MD [address] [place] [address] PCP - General Internal Medicine 10/27/20 documented as of this encounter
== END 2024-09-18 14:11 | disposition home or self-care (01) ==
LOC: HO.HOP 13:04
PROVIDERS: PCP Internal Medicine; Visit Provider Clinical Nurse Specialist Psychiatric/Mental Health
DX: F41.9 Anxiety disorder, unspecified (principal); F10.10 Alcohol abuse, uncomplicated
CPT/HCPCS: 90792

== ENCOUNTER 2024-09-18 13:04 | Outpatient (REF) | payer MEDICARE, SELFPAY ==
[2024-09-18 15:06] LABS: Magnesium 2.2 mg/dL (1.6-2.6)
[2024-09-23 10:03] LABS: Vit B3 - Nicotinic Acid <20 ng/mL (see note)
== END 2024-09-18 13:05 | disposition home or self-care (01) ==
LOC: HO.LAB 13:04
PROVIDERS: PCP Internal Medicine; Visit Provider Clinical Nurse Specialist Psychiatric/Mental Health
DX: F41.9 Anxiety disorder, unspecified (principal); F10.10 Alcohol abuse, uncomplicated; G62.2 Polyneuropathy due to other toxic agents; Z79.01 Long term (current) use of anticoagulants; Z79.899 Other long term (current) drug therapy
CPT/HCPCS: 36415; 83735; 84207; 84252; 84425; 84591; 90792

== ENCOUNTER 2024-09-21 19:07 | Outpatient (REF) | payer MEDICARE, SELFPAY ==
--- NOTE | ~2024-09-21 | MR_ITS ---
EXAMINATION: MR BRAIN WITHOUT IV CONTRAST HISTORY: F10.97 - Alcohol use, unspecified with alcohol-induced persisting dementia TECHNIQUE: Sagittal T1, coronal FLAIR, and axial T1, FLAIR, T2, gradient echo, and diffusion weighted MR images of the brain were obtained. COMPARISON: Correlation is made with an unenhanced head CT dated 01/16/2022. FINDINGS: The pituitary is normal in size. The cerebellar tonsils are normally located. There is mild prominence of the ventricular system and cortical sulci, consistent with atrophy. Scattered periventricular and subcortical white matter hyperintensities are noted on the FLAIR and T2-weighted images which are nonspecific, but often seen in the setting of small vessel ischemic disease. There is no mass effect or midline shift. No intra or extra-axial fluid collections are identified. There are no foci of restricted diffusion. Normal vascular flow voids are noted in the basilar and carotid arteries. The visualized paranasal sinuses are clear. MR/MR head/brain wo con IMPRESSION: No acute intracranial abnormality. Electronically signed by: Ricardo Villalobos MD 09/22/2024 08:40 AM EDT
--- OUTSIDE RECORDS SUMMARY | 2024-09-21 19:20 | XMS_ITS | Encounter Summary ---
Author Organization [facility] Address [address] [place] [address] Phone Care Team Providers Care Snuff Packing Machine Operator Name Role Phone Ananth Fung MD Primary Care Provider [phone] Encounter Details Date Type Department Care Team (Late st Contact Info) Description 12/23/2020 Telephone [facility] [address] [place] [address] Kennedi Bridges Social History Tobacco [...] on filedocumented in this encounter Care Teams Snuff Packing Machine Operator Relationship Specialty Start Date End Date Ananth Fung MD [address] [place] [address] PCP - General Internal Medicine 10/27/20 documented as of this encounter
== END 2024-09-21 19:08 | disposition home or self-care (01) ==
LOC: HO.MRI 19:07
PROVIDERS: PCP Internal Medicine; Visit Provider Psychiatry & Neurology Neurology
DX: G93.40 Encephalopathy, unspecified (principal); R26.9 Unspecified abnormalities of gait and mobility; F10.97 Alcohol use, unspecified with alcohol-induced persisting dementia
CPT/HCPCS: 70551

== ENCOUNTER → 2024-09-21 19:08 | Outpatient (BNV) | payer MEDICARE, SELFPAY | PROVIDERS: PCP Internal Medicine; Visit Provider Radiology Diagnostic Radiology | DX: F10.27 Alcohol dependence with alcohol-induced persisting dementia (principal) | CPT/HCPCS: 70551 ==

== ENCOUNTER 2024-10-01 12:26 | Outpatient (AMB) | payer MEDICARE, SELFPAY ==
--- NOTE | 2024-10-01 12:32 | A.OFFVIS_ITS ---
Intake Visit Reasons: Ringing Ears, numbness emory hands Allergies penicillin G Allergy (Unknown, Verified 09/16/24 13:57) pt unsure HPI Comments Details: 74 yo woman with chronic exposure to alcohol, head CT in 2021 revealing significant cerebellar atrophy likely caused by alcohol, going through significant stress related to family resulting in psychological and physical GI symptoms. She was investigated for IBS, diagnosed with an infection and was treated with two weeks course of antibiotics, which may also cause some of these symptoms, at least transiently. Her main issue is chronic stress/anxiety disorder and alcohol drinking. There are signs of both central and peripheral nervous system injury from it causing numbness, tingling, unsteadiness, and cognitive symptoms. She is here with symptoms related to balance and cognitive function. Her sympt oms commenced following the treatment with metronidazole for a suspected intestinal infection. While adhering to the medication regimen, she experienced adverse neurological symptoms and consequently reported these to her physician, experiencing worsening post alcohol consumption. The patient noted these changes in balance, jani to unsteady, clumsy, and shaky movements, which were not present prior. 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 Cognitive difficulties including brain fog, attributed to irritable bowel syndrome and stress, have been a concern for the patient. She details a history of alcohol use influenced by cultural and stressful contexts but confirms cessation since initial physician intervention. No issues with cognition prior to recent events were reported. [facility] Medical History (Updated 10/01/24 @ 12:39 by Bonnie Lopez MD) Numbness in both hands Ringing in ears Anxiety GERD (gastroesophageal reflux disease) HTN (hypertension) High cholesterol Surgical History History of colonoscopy (~10/30/17) History of nasal surgery History of left inguinal hernia repair History of appendectomy Family History (Updated 08/26/24 @ 13:53 by XIOMARA Sanches) Father Diabetes Alcohol abuse Mother Dementia Social History (Updated 08/26/24 @ 13:54 by XIOMARA Sanches) Housing: House Alcohol intake: current Alcohol intake frequency: holidays/special occasions only Alcohol type: wine Patient Tobacco Use Status: Former Tobacco user service: No Current occupational status: retired Cognitive needs: No Hearing needs: No Vision needs: Yes (rx glasses) Review of Systems Const Details: - Neurological: Reports balance issues and cognitive impairment; denies peripheral neuropathy. - Psychiatric: Reports anxiety related to life stressors and a history of alcohol use associated with anxiety. Physical Exam Neuro Other: Mental Status: Alert and oriented to person, place, and time. Normal attention. Normal spontaneous speech, fluency, and comprehension. Cranial Nerves: CN II: Visual gibson full to confrontation, visual acuity intact. CN III, IV, : Pupils equal, round, reactive to light and accommodation. Extraocular movements are normal. CN V: Facial sensation is normal. CN VII: Facial movements symmetrical. CN VIII: Hearing intact to bedside conversation is normal. CN IX, X: Palate elevates symmetrically. CN XI: Shoulder shrug and head turn symmetrical. CN XII: Tongue midline without atrophy or fasciculations. Difficulty doing tandem gait Extrapyramidal: Full facial expressions and blinking. No rigidity. Movements are appropriate with no tremor or abnormality. Speech: Normal; no dysarthria or tremor. Assessment & Plan Assessment & Plan (1) Cerebellar atrophy: Code(s): G31.9 - Degenerative disease of nervous system, unspecified Category: Medical Plan Impression: a: Mild cerebellar atrophy with significant exposure to alcohol causing mild unsteadiness of gait b: Mild cognitive impairment c: Anxiety disorder Rec: a: No alcohol b: Appropraite management of anxiety disorder Coding Level of Care Code Est Pt Level 5 (43890) Diagnoses Cerebellar atrophy G31.9
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
--- OUTSIDE RECORDS SUMMARY | 2024-10-01 13:23 | XMS_ITS | Encounter Summary ---
Author Organization [facility] Address [address] [place] [address] Phone Care Team Providers Care Engineering Program Manager Name Role Phone Ananth Fung MD Primary Care Provider [phone] Encounter Details Date Type Department Care Team (Late st Contact Info) Description 12/23/2020 Telephone [facility] [address] [place] [address] Kennedi Bridges Social History Tobacco [...] on filedocumented in this encounter Care Teams Engineering Program Manager Relationship Specialty Start Date End Date Ananth Fung MD [address] [place] [address] PCP - General Internal Medicine 10/27/20 documented as of this encounter
== END 2024-10-01 12:47 | disposition home or self-care (01) ==
PROVIDERS: PCP Internal Medicine; Referring Provider Internal Medicine; Visit Provider Psychiatry & Neurology Neurology
DX: G31.9 Degenerative disease of nervous system, unspecified (principal)
CPT/HCPCS: 99213

== ENCOUNTER → 2024-10-01 12:26 | Outpatient (BNVA) | payer MEDICARE, SELFPAY | PROVIDERS: PCP Internal Medicine; Referring Provider Internal Medicine; Visit Provider Psychiatry & Neurology Neurology | DX: G31.9 Degenerative disease of nervous system, unspecified (principal); F41.9 Anxiety disorder, unspecified | CPT/HCPCS: 99212 ==

== ENCOUNTER 2024-10-06 11:22 | Outpatient (AMB) | payer MEDICARE, SELFPAY ==
--- NOTE | 2024-10-06 11:40 | MHC.OFFVISPS ---
Intake Intake Visit Reasons: follow up [employer] Required: No Allergies penicillin G Allergy (Unknown, Verified 09/16/24 13:57) pt unsure Medication List - Last Reconciled 10/06/24 by Radha Rivera APRN alprazolam 1 mg PO BID PRN 21 days calcium carbonate 600 mg PO DAILY cholecalciferol (vitamin D3) 25 mcg PO DAILY dicyclomine 10 mg PO omeprazole 40 mg PO DAILY temazepam 30 mg PO BEDTIME PRN valsartan 80 mg PO DAILY HPI- Psychiatric Chief Complaint: follow up HPI Narrative: Pt seen for follow up re: anxiety. Pt had blood work and MRI done - both of which results were essentially normal. Pt reports neurologist told her she does not have alcohol related dementia. Although review of Neurology consult shows impression: mild cerebellar atrophy with significant exposure to alcohol causing mild unsteadiness of gait, Mild cognitive impairment and Anxiety disorder. Pt reports continued anxiety and depression. She reports very stressful periods in her life:her 's open heart surgery and her child's gender transition more recently. Another daughter had leukemia and mental health issues following including severe peripartum psychosis. Pt noted negative side effects from Wellbutrin and feels current medications are not effective. Pt also reports a history of hyponatremia while on Prozac. Pt reports positive effects from prozac earlier inher life with no adverse effects. Long-term use of Temazepam for insomnia has led to high tolerance. She reports being on temazepam for RLS. She reports xanax prn is very helpful for panic attacks. She reports she recently started with a therapist and is feeling hopeful that will help her. She would like to try another SSRI as she has a very good experience the first time she was on prozac. 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 She has high anxiety. worries, has panic attacks, and ruminates when she can't fix something. She denies SI or HI. We discussed lowering the temazepam in hte future. She is abstaining from alcohol. Past Psychiatric History: Pt seen in past by Dr Petey Eller outpt. trialed on wellbutrin - negative side effects, prozac caused hyponatremia. afraid to try recommended duloxetine due to hyponatremai. Subjective Subjective Subjective Medication Compliance: Yes Side effects from medications: No Review of Systems Medical Review of Systems: unchanged Mental Status Exam Mental Status Exam Patient Appearance: Well Grooomed and Appropriate Patient Orientation: Person, Place, Time and Situation Level of Consciousness: Awake, Appropriate and Alert Patient Behavior: Appropriate, Cooperative and Anxious Mood Description: Anxious, Nervous, Apprehensive and Expansive Affect Description: Anxious, Nervous and Expansive Patient Cognition Impaired: No Ability to Follow Directions: Good Speech Pattern: Clear, Perseverating, Coherent and Excessive Hallucinations: None Delusions: Not Present Thought Process: Rumination Thought Content: positive for Preoccupation Judgement: Fair Assessment and Plan Assessment & Plan (1) Anxiety: Status: Acute Code(s): F41.9 - Anxiety disorder, unspecified (2) Alcohol abuse: Status: Acute Code(s): F10.10 - Alcohol abuse, uncomplicated Plan start lexapro 5mg daily continue xanax and temazepam for now drink 24 ounces of water per day drink gatorade if needing more hydration use small amount of table salt with meals stay away from all alcohol return in 3-4 weeks Medications: New escitalopram oxalate (Lexapro) 5 mg PO DAILY 30 tabs 0RF Changed From alprazolam 1 mg PO BID 21 days PRN 42 tabs 0RF anxiety To alprazolam 1 mg PO BID PRN 60 tabs 1RF anxiety 30 days Counseling and coordination of Care Pt. Self Management counseling: Med illness tx adherence, Mod caffeine/ETOH intake, Nutrition education and improvement, Sleep hygiene and General coping skills Medication management counseling: Effectiveness, Side effects, Dosing range, Duration, Drug interaction and Adherence Details-Med Mgmt counseling: education re: roasterman use of benzodiazepines and etoh use Diagnosis and Prognosis Counseling: Accuracy of diagnosis, Prognosis over time, Impact of diagnosis on life functions, Impact of family relationship, Problematic behaviors secondary to diagnosis and Adequacy of current interventions Details: I spent 45 minutes reviewing the record, seeing the patient and documenting in the medical record. Counseling provided to the patient/caregiver as outlined below. Addressed patient/caregiver concerns regarding current medication regime including effective adherence. Addressed patient/caregiver concerns regarding diagnosis and prognosis including accuracy of diagnosis, prognosis over time, impact of diagnosis. Addressed patient/caregiver concerns regarding impact of recent stressors. [facility] Medical History (Updated 10/01/24 @ 12:39 by Bonnie Lopez MD) Numbness in both hands Ringing in ears Anxiety GERD (gastroesophageal reflux disease) HTN (hypertension) High cholesterol Surgical History History of colonoscopy (~10/30/17) History of nasal surgery History of left inguinal hernia repair History of appendectomy Family History (Updated 08/26/24 @ 13:53 by XIOMARA Sanches) Father Diabetes Alcohol abuse Mother Dementia Social History (Updated 08/26/24 @ 13:54 by XIOMARA Sanches) Housing: House Alcohol intake: current Alcohol intake frequency: holidays/special occasions only Alcohol type: wine Patient Tobacco Use Status: Former Tobacco user service: No Current occupational status: retired Cognitive needs: No Hearing needs: No Vision needs: Yes (rx glasses) Social History: 53 yrs. 2 adult children Has a daughter who transitioned from male to female. Daughter had leukemia in 1999 which was very frightening for family. Daughter lives at home with her and . pt has been supportive and gone to all daughter's medical appts for leukemia and transition. 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 Substance History: daily alcohol use until 1.5 weeks ago when told she had etoh dementia. she reports regular use of 2-3 glasses of wine and 1-2 shots of vodka daily to several times a week for years. No other drug use Trauma History: lived in [place] during 10/23 Coding Level of Care Code Est Pt Level 5 (54218) Diagnoses Anxiety F41.9 Alcohol abuse F10.10
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
== END 2024-10-06 12:28 | disposition home or self-care (01) ==
LOC: HO.HOP 11:22
PROVIDERS: PCP Internal Medicine; Visit Provider Clinical Nurse Specialist Psychiatric/Mental Health
DX: F41.9 Anxiety disorder, unspecified (principal); F10.10 Alcohol abuse, uncomplicated
CPT/HCPCS: 99215

== ENCOUNTER → 2024-10-06 11:22 | Outpatient (BNVA) | payer MEDICARE, SELFPAY | PROVIDERS: PCP Internal Medicine; Visit Provider Clinical Nurse Specialist Psychiatric/Mental Health | DX: F10.10 Alcohol abuse, uncomplicated (principal); F41.9 Anxiety disorder, unspecified | CPT/HCPCS: 99212 ==

== ENCOUNTER 2024-10-24 09:25 | Outpatient (AMB) | payer MEDICARE, SELFPAY ==
--- OUTSIDE RECORDS SUMMARY | 2024-03-11 09:20 | XMS_ITS ---
Author Organization [facility] Address [address] [place] [address] Care Team Providers Care Cruise Consultant Name Role Phone MAYUR, KARTIK Primary Care Provider Jd Francis Jr, Clifford Brand REASON FOR VISIT epigastric pain Problems Problem Type SNOMED Code ICD Code Onset Dates Problem Status W/U Status Risk Notes Problem Gastro-esophagea l reflux disease without esophagitis (671917260) Gastro-esophage al reflux disease without esophagitis (K21.9) Active confirmed Encounters Encounter Location Date Provider Diagnosis [facility] [place] [address] [place] [id number] 03/11/2024 Clifford Francis Jr Gastro-esophageal reflux disease without esophagitis K21.9 and Abdominal pain, epigastric R10.13 Assessments Encounter Date Diagnosis (ICD Code) Assessment Notes Treatment Notes Treatment Clinical Notes Section Notes 03/11/2024 Gastro-esophagea l reflux disease without esophagitis (ICD-10 - K21.9) 03/11/2024 Abdominal pain, epigastric (ICD-10 - R10.13) Plan Of Treatment Next Appt Details Provider Name:Clifford castanon Jr, 01/26/2025 11:00:00 AM, [address], [address], [place], [address], Progress Notes * TANIA ROJODOB: 2 (74 yo F)Acc No.[id number]:03/11/2024 EGD/MAC Patient: TANIA BURNHAM Provider: Francis Francis MD :1950 A ge:74 Y S ex:Female Date:03/11/2024 Address:[address] [facility] , [place] Pcp:YUNG MERCHANT Subjective: * Chief Complaints: * 1 . Epigastric pain. * Medical History: Objective: * Vitals: Assessment: * Assessment: 1. G cheryl-esophageal reflux disease without esophagitis - K21.9 (Primary) 2 .?Abdominal pain, epigastric - R10.13 Plan: * Treatment: * Procedure Codes: 4 3239 UPPER GI ENDOSCOPY, BIOPSY * * The named appointment provid er may or may not be the originator of this progress note, and it is not deemed complete until electronically signed by the appointment provider. Sign off status: Pending * Provider: Francis Francis MD Date: 0 03/11/2024 Generated for Desirae juarez/Margie/Crisitting on: 0 10/24/2024 10:28 AM EDT
--- NOTE | 2024-10-24 09:24 | MHC.PC.OV ---
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 Sales Required: No Accompanied by: Self / Same As Patient Allergies penicillin G Allergy (Unknown, Verified 10/24/24 10:21) pt unsure Medication List - Last Reconciled 10/24/24 by Isaura Rivera PA-C alprazolam 1 mg PO BID PRN 30 days calcium carbonate 600 mg PO DAILY cholecalciferol (vitamin D3) 25 mcg PO DAILY dicyclomine 10 mg PO escitalopram oxalate (Lexapro) 5 mg PO DAILY omeprazole 40 mg PO DAILY temazepam 30 mg PO BEDTIME PRN valsartan 80 mg PO DAILY Tobacco use date assessed: 10/24/24 Dental Screening Dental Screen Date: 08/26/24 HPI follow up HPI Details The patient is a 74-year-old female presenting with anxiety and gastrointestinal symptoms related to IBS and SIBO. She reports experiencing severe anxiety over the past three years, which she believes has exacerbated her IBS symptoms. She has been under the care of Dr. Francis and underwent an endoscopy, which revealed no significant findings. The patient was diagnosed with Small Intestinal Bacterial Overgrowth following a hydrogen breath test and was treated with metronidazole and rifaximin. She experienced severe side effects from the medication, including neuropathy and brain fog, but completed the course of treatment. Following cessation of the medication, she consumed alcohol, which led to a recurrence of symptoms and subsequent evaluation for multiple sclerosis, which was ruled out. 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 She has been advised to abstain from alcohol and manage her anxiety, for which she is seeing a psychiatrist and is on Lexapro and alprazolam. The psychiatrist Radha Priest approved patient to continue a lorazepam b.i.d./PRN. Her sodium levels were previously low due to Prozac, but have normalized since switching to Lexapro. She is considering increasing her Lexapro dosage and is monitoring for potential hyponatremia. The patient is also on valsartan for elevated cholesterol and takes a multivitamin, which has resulted in elevated vitamin B6 and B12 levels. She has been advised to reduce the frequency of multivitamin intake. Social History - Alcohol use: Previously consumed wine regularly, currently abstaining due to medical advice. - Therapy: Engaged in therapy with a psychiatrist and a therapist for anxiety management. [facility] Medical History (Updated 10/24/24 @ 10:25 by Isaura Rivera PA-C) Excessive vitamin B6 intake Elevated vitamin B12 level Hyponatremia Small intestinal bacterial overgrowth IBS (irritable bowel syndrome) Numbness in both hands Ringing in ears Anxiety GERD (gastroesophageal reflux disease) HTN (hypertension) High cholesterol Surgical History History of colonoscopy (~10/30/17) History of nasal surgery History of left inguinal hernia repair History of appendectomy Family History Father Diabetes Alcohol abuse Mother Dementia Social History Housing: House Alcohol intake: current Alcohol intake frequency: holidays/special occasions only Alcohol type: wine Patient Tobacco Use Status: Former Tobacco user service: No Current occupational status: retired Cognitive needs: No Hearing needs: No Vision needs: Yes (rx glasses) Questionnaire PHQ-9 Over the last 2 weeks, how often have you been bothered by any of the following problems? 1. Little interest or pleasure in doing things: not at all 2. Feeling down, depressed, or hopeless: not at all 3. Trouble falling or staying asleep, or sleeping too much: not at all 4. Feeling tired or having little energy: not at all 5. Poor appetite or overeating: not at all 6. Feeling bad about yourself - or that you are a failure or have let yourself or your family down: not at all 7. Trouble concentrating on things, such as reading the newspaper or watching television: not at all 8. Moving or speaking so slowly that other people could have noticed. Or the opposite - being so fidgety or restless that you have been moving around a lot more than usual: not at all 9. Thoughts that you would be better off or of hurting yourself in some way: not at all Total score: 0 Depression Screening Interpretation: Negative Depression Screening Done: Yes 42285 - PHQ-9 Billing: Yes Source: Developed by Drs. Ricardo Kathleen, Jenn Skinner, Lalit Stanton and colleagues, with an educational lashay from [employer]. Thrive Questionnaire Date Thrive assessed: 08/26/24 I am a: Patient What is your living situation today?: I have a steady place to live Within the past 12 months, did the food you bought not last and you didn't have the money to get more?: Never true Within the past 12 months, did you worry whether your food would run out before you got money to buy more?: Never true Do you have trouble paying for medicines?: No Do you have trouble getting transportation to medical appointments?: No Do you have trouble paying your heating and electricity bill?: No Do you have trouble taking care of your child, family member or friend?: No Do you have trouble with day-to-day activities such as bathing, preparing meals, shopping, managing finances, etc.?: No Are you currently unemployed and looking for a job?: No Are you interested in more education?: No Please select the resources that you would like help with: None THRIVE Score: 0 AUDIT C Alcohol Use Questionnaire (AUDIT-C) 1. How often do you have a drink containing alcohol?: Monthly or less 2. How many drinks containing alcohol do you have on a typical day when you are drinking?: 1 or 2 3. How often do you have six or more drinks on one occasion?: Never Total Score: 1 Score Reviewed/Action Taken: No KEATON-7 AMB Questionnaire KEATON-7 Date KEATON - 7 assessed: 10/24/24 Feeling nervous, anxious, or on edge: 0 = Not at all Not being able to stop or control worryin = Not at all Worrying too much about different things: 0 = Not at all Trouble relaxin = Not at all Being so restless that it is hard to sit still: 0 = Not at all Becoming easily annoyed or irritable: 0 = Not at all Feeling afraid as if something awful might happen: 0 = Not at all Total KEATON-7 score (0-4 normal; 5-9 mild; 10-14 moderate; 15-21 severe): 0 Source: Developed by Drs. Ricardo Kathleen, Jenn Skinner, Lalit Stanton and colleagues, with an educational lashay from [employer]. KEATON-7 Assessment Billing KEATON-7 Assessment Tool: KEATON-7 Assessment 03194 Review of Systems Const Details: - Gastrointestinal: Reports irritable bowel syndrome symptoms exacerbated by anxiety. - Neurological: Reports brain fog and neuropathy as side effects of medication. - Psychological: Reports severe anxiety over the past three years. - Musculoskeletal: Reports mild unsteadiness of gait attributed to cerebellar atrophy. All systems reviewed & are unremarkable except as noted in HPI and below Physical exam (Primary Care) Vital Signs: Last Vital Signs Temp 97.0 F 10/24/24 09:25 Pulse 70 10/24/24 09:25 Resp 14 10/24/24 09:25 BP 131/58 L 10/24/24 09:25 Pulse Ox 98 10/24/24 09:25 Oxygen Delivery Method Room Air 10/24/24 09:25 Care Plan Goal for BP management: <140/90 at Goal BMI result Body Mass Index 23.5 Tobacco/Smoking Status: Tobacco use Status Tobacco use date assessed 10/24/24 10/24/24 09:27 Patient Tobacco Use Status Former Tobacco user 10/24/24 09:27 PHQ-9: PHQ-9 Score PHQ-9: Total score 0 10/24/24 09:34 Depression Screening Interpretation: Negative Thrive Assessment: Date of Thrive Assessment Date Thrive assessed 08/26/24 10/24/24 09:27 Const Other: Appearance: Alert. Oriented X3. No acute distress. Head: Normal external exam. Normocephalic. Atraumatic. Eyes: Pupils are equal, round, and reactive to light. Extraocular movements intact. Conjunctiva and sclera normal. Eyelids normal. Throat: Pharynx normal. Uvula midline. Moist mucous membranes. Neck: Normal inspection. Neck supple. Full range of motion. Cardiovascular: Normal heart rate and rhythm. Heart sound normal. No murmurs noted. Pulses normal throughout. Respiratory: No respiratory distress. Painless inspiration. Breath sounds normal. No wheezes/rales/rhonchi noted. Chest nontender. No accessory muscle usage noted or decreased air movement noted. Abdomen: Soft and nontender. Back: Full range of motion noted. Skin: Skin warm and dry. Normal skin color. Normal skin turgor. No rashes/lesions/lacerations noted. Extremities:Extremities exhibit normal range of motion. Neuro: Oriented X 3. No motor deficit. No sensory deficit. Reflexes normal. Results Reviewed Results Reviewed: - Labs: Sodium level normalized at 135 mmol/L after switching from Prozac to Lexapro. - Imaging: MRI of the brain showed mild cerebellar atrophy. - Tests: Hydrogen breath test confirmed small intestinal bacterial overgrowth. Coding Level of Care Code Est Pt Level 4 (90318) Complex EM visit Add On G2211 Diagnoses IBS (irritable bowel syndrome) K58.9 Anxiety F41.9 Small intestinal bacterial overgrowth K63.8219 Cerebellar atrophy G31.9 Hyponatremia E87.1 Elevated vitamin B12 level R79.89 Excessive vitamin B6 intake E67.8 Additional Codes PHQ-9 - 32157 - PHQ-9 Billing: Yes ([id number]) KEATON-7 Assessment Billing - KEATON-7 Assessment Tool: KEATON-7 Assessment 61851 ([id number]) Assessment & Plan Assessment & Plan (1) IBS (irritable bowel syndrome): Code(s): K58.9 - Irritable bowel syndrome, unspecified Category: Medical Plan: The patient is advised to continue managing anxiety, which exacerbates IBS symptoms, through therapy and medication. (2) Anxiety: Code(s): F41.9 - Anxiety disorder, unspecified Category: Medical Plan: The patient is currently on Lexapro and alprazolam for anxiety management and is advised to continue therapy sessions. (3) Small intestinal bacterial overgrowth: Code(s): K63.8219 - Small intestinal bacterial overgrowth, unspecified Category: Medical Plan: The patient completed a course of metronidazole and rifaximin for SIBO and is advised to monitor symptoms and avoid alcohol. (4) Cerebellar atrophy: Code(s): G31.9 - Degenerative disease of nervous system, unspecified Category: Medical Plan: The patient is advised to abstain from alcohol to prevent further cerebellar atrophy and manage unsteadiness of gait. (5) Hyponatremia: Code(s): E87.1 - Hypo-osmolality and hyponatremia Category: Medical Plan: The patient is advised to monitor sodium levels, especially with the planned increase in Lexapro dosage. (6) Elevated vitamin B12 level: Code(s): R79.89 - Other specified abnormal findings of blood chemistry Category: Medical Plan: The patient is advised to reduce the frequency of multivitamin intake to manage elevated vitamin levels. (7) Excessive vitamin B6 intake: Code(s): E67.8 - Other specified hyperalimentation Category: Medical Plan: The patient is advised to reduce the frequency of multivitamin intake to manage elevated vitamin levels. Plan Plan Patient was informed and verbally consented to the use of an ambient scribe for clinic note documentation during this visit. 1. Irritable Bowel Syndrome (Ibs) The patient is advised to continue managing anxiety, which exacerbates IBS symptoms, through therapy and medication. 2. Anxiety The patient is currently on Lexapro and alprazolam for anxiety management and is advised to continue therapy sessions. 3. Small Intestinal Bacterial Overgrowth (Sibo) The patient completed a course of metronidazole and rifaximin for SIBO and is advised to monitor symptoms and avoid alcohol. 4. Mild Cerebellar Atrophy The patient is advised to abstain from alcohol to prevent further cerebellar atrophy and manage unsteadiness of gait. 5. Hyponatremia The patient is advised to monitor sodium levels, especially with the planned increase in Lexapro dosage. 6. Elevated Vitamin B6 And B12 Levels The patient is advised to reduce the frequency of multivitamin intake to manage elevated vitamin levels. During the visit, we discussed the importance of managing anxiety to alleviate IBS symptoms and the need to abstain from alcohol to prevent further cerebellar atrophy. We also reviewed the patient's current medication regimen, including Lexapro and alprazolam, and the plan to monitor sodium levels with the potential increase in Lexapro dosage. The patient was advised to reduce multivitamin intake due to elevated vitamin B6 and B12 levels. Orders: Orders IRON PROFILE Today D64.9 - Anemia, unspecified Basic Metabolic Panel Today Z00.00 - Encounter for general adult medical examination without abnormal findings Ferritin Today D64.9 - Anemia, unspecified Patient Instructions: - Continue therapy and medication for anxiety management. - Abstain from alcohol to prevent further cerebellar atrophy. - Monitor sodium levels, especially with any changes in Lexapro dosage. - Reduce multivitamin intake to manage elevated vitamin levels.
[2024-10-24 09:25] VITALS: BP 131/58; PULSE 70; RESP 14; TEMP 36.1; O2SAT 98; BMI 23.5
--- OUTSIDE RECORDS SUMMARY | 2024-10-24 10:29 | XMS_ITS | Encounter Summary ---
Author Organization [facility] Address [address] [place] [address] Phone Care Team Providers Care Mailhouse Operator Name Role Phone Ananth Fung MD Primary Care Provider [phone] Encounter Details Date Type Department Care Team (Late st Contact Info) Description 12/23/2020 Telephone [facility] [address] [place] [address] Kennedi Bridges Social History Tobacco [...] on filedocumented in this encounter Care Teams Mailhouse Operator Relationship Specialty Start Date End Date Ananth Fung MD [address] [place] [address] PCP - General Internal Medicine 10/27/20 documented as of this encounter
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
--- OUTSIDE RECORDS SUMMARY | 2024-10-24 10:29 | XMS_ITS | Clinical Summary ---
Author Organization [facility] Address [address] [place] [address] Phone Care Team Providers Care Vaccinator Name Role Phone Ananth Fung MD Primary Care Provider [phone] Allergies Active Allergy Reactions Criticality Noted Date [...] 1 (one) time each day 30 tablet 11 1 Active ondansetron (ZOFRAN) 4 MG tablet [...] of 1 - PCV) 2001 Influenza Vaccine (#1) 2024 Hepatitis B Vaccine Aged Out No longe r eligible based on patient's age to complete this topic Insurance [facility] ESTER Neri([id number]) [facility] PPO Blue([id number]) Care Teams Vaccinator Relationship Specialty Start Date End Date Ananth Fung MD [address] [place] [address] PCP - General Internal Medicine 10/27/20
== END 2024-10-24 09:53 | disposition home or self-care (01) ==
LOC: HO.HMCSH 09:25
PROVIDERS: PCP Internal Medicine; Visit Provider Physician Assistant Medical
DX: K58.9 Irritable bowel syndrome, unspecified (principal); F41.9 Anxiety disorder, unspecified; K63.8219 Small intestinal bacterial overgrowth, unspecified; G31.9 Degenerative disease of nervous system, unspecified; E87.1 Hypo-osmolality and hyponatremia; R79.89 Other specified abnormal findings of blood chemistry; E67.8 Other specified hyperalimentation

== ENCOUNTER → 2024-10-24 09:25 | Outpatient (BNVA) | payer MEDICARE, SELFPAY | PROVIDERS: PCP Internal Medicine; Visit Provider Physician Assistant Medical | DX: E87.1 Hypo-osmolality and hyponatremia (principal); K58.9 Irritable bowel syndrome, unspecified; F41.9 Anxiety disorder, unspecified; E78.00 Pure hypercholesterolemia, unspecified; K63.8219 Small intestinal bacterial overgrowth, unspecified; G31.9 Degenerative disease of nervous system, unspecified; R79.89 Other specified abnormal findings of blood chemistry; E67.8 Other specified hyperalimentation; D64.9 Anemia, unspecified | CPT/HCPCS: 96127; 99212 ==

== ENCOUNTER 2024-10-27 12:56 | Outpatient (AMB) | payer MEDICARE, SELFPAY ==
--- OUTSIDE RECORDS SUMMARY | 2024-03-11 09:20 | XMS_ITS ---
Author Organization [facility] Address [address] [place] [address] Care Team Providers Care Chalk Tester Name Role Phone MAYUR, KARTIK Primary Care Provider Jd Francis Jr, Clifford Brand REASON FOR VISIT epigastric pain Problems Problem Type SNOMED Code ICD Code Onset Dates Problem Status W/U Status Risk Notes Problem Gastro-esophagea l reflux disease without esophagitis (574056905) Gastro-esophage al reflux disease without esophagitis (K21.9) Active confirmed Encounters Encounter Location Date Provider Diagnosis [facility] [place] [address] [place] [id number] 03/11/2024 Clifford Francis Jr Gastro-esophageal reflux disease without esophagitis K21.9 and Abdominal pain, epigastric R10.13 Assessments Encounter Date Diagnosis (ICD Code) Assessment Notes Treatment Notes Treatment Clinical Notes Section Notes 03/11/2024 Gastro-esophagea l reflux disease without esophagitis (ICD-10 - K21.9) 03/11/2024 Abdominal pain, epigastric (ICD-10 - R10.13) Plan Of Treatment Next Appt Details Provider Name:Clifford castanno Jr, 01/26/2025 11:00:00 AM, [address], [address], [place], [address], Progress Notes * TANIA ROJODOB: 2 (74 yo F)Acc No.[id number]:03/11/2024 EGD/MAC Patient: TANIA BURNHAM Provider: Francis Francis MD :1950 A ge:74 Y S ex:Female Date:03/11/2024 Address:[address] [facility] , [place] Pcp:YUNG MERCHANT Subjective: * Chief Complaints: * [...] 03/11/2024 Generated for Desirae juarez/Margie/Crisitting on: 0 10/27/2024 05:50 PM EDT
--- NOTE | 2024-10-27 13:05 | A.OFFPSYCH_ITS ---
Intake Intake Visit Reasons: f/u consultation Division Supervisor Required: No Allergies penicillin G Allergy (Unknown, Verified 10/24/24 10:21) pt unsure Medication List - Last Reconciled 10/27/24 by Radha Rivera APRN alprazolam 1 mg PO BID PRN 30 days calcium carbonate 600 mg PO DAILY cholecalciferol (vitamin D3) 25 mcg PO DAILY dicyclomine 10 mg PO escitalopram oxalate (Lexapro) 5 mg PO DAILY omeprazole 40 mg PO DAILY temazepam 30 mg PO BEDTIME PRN valsartan 80 mg PO DAILY HPI- Psychiatric Chief Complaint: f/u consultation HPI Narrative: Pt seen for follow up re: anxiety. Pt reports the lexapro 5mg daily is tolerable and seems to be helping a little. she feels more hopeful. Pt reports continued moderate anxiety and depression. Pt also reports a history of hyponatremia while on Prozac. Pt reports positive effects from prozac earlier in her life with no adverse effects. Long-term use of Temazepam for insomnia has led to high tolerance. She reports being on temazepam for RLS. She reports xanax prn is very helpful for panic attacks. She reports she recently started with a therapist and is feeling hopeful that will help her. She has high anxiety. worries, has panic attacks, and ruminates when she can't fix something. She denies SI or HI. We discussed trial of temazepam 15mg at bedtime and may take an additional 15mg if awake more than an hour. She is abstaining from alcohol as recommended Past Psychiatric History: Pt seen in past by Dr Petey Eller outpt. trialed on wellbutrin - negative side effects, prozac caused hyponatremia. afraid to try recommended duloxetine due to hyponatremai. Subjective Subjective Subjective Medication Compliance: Yes Side effects from medications: No Review of Systems Medical Review of Systems: unchanged Mental Status Exam Mental Status Exam Patient Appearance: Well Grooomed and Appropriate Patient Orientation: Person, Place, Time and Situation Level of Consciousness: Awake, Appropriate and Alert Patient Behavior: Appropriate, Cooperative and Anxious Mood Description: Anxious, Nervous, Apprehensive and Expansive Affect Description: Anxious, Nervous and Expansive Patient Cognition Impaired: No Ability to Follow Directions: Good Speech Pattern: Clear, Perseverating, Coherent and Excessive Hallucinations: None Delusions: Not Present Thought Process: Rumination Thought Content: positive for Preoccupation Judgement: Fair Assessment and Plan Assessment & Plan (1) Anxiety: Status: Acute Code(s): F41.9 - Anxiety disorder, unspecified (2) Alcohol abuse: Status: Acute Code(s): F10.10 - Alcohol abuse, uncomplicated Plan increase lexapro to 10 mg daily continue xanax prn change temazepam to 15 mg and trial one at bedtime and one in middle of the night if awake for 1 hour and can't fall asleep drink 24 ounces of water per day drink gatorade or electrolyte mix if needing more hydration due to hx hyponatremia labs in 2 weeks use small amount of table salt with meals stay away from all alcohol return in 6 weeks Medications: New escitalopram oxalate (Lexapro) 10 mg PO DAILY 90 tabs 1RF temazepam Take 1-2 capsules as needed at night for insomnia 30 mg (2 x 15 mg) PO BEDTIME PRN 60 caps 2RF sleep Discontinued escitalopram oxalate Discontinued Reason: Doctor's Order 5 mg PO DAILY 30 tabs 0RF Counseling and coordination of Care Pt. Self Management counseling: Med illness tx adherence, Mod caffeine/ETOH intake, Nutrition education and improvement, Sleep hygiene and General coping skills Medication management counseling: Effectiveness, Side effects, Dosing range, Duration, Drug interaction and Adherence Details-Med Mgmt counseling: education re: [facility] use of benzodiazepines and etoh use Diagnosis and Prognosis Counseling: Accuracy of diagnosis, Prognosis over time, Impact of diagnosis on life functions, Impact of family relationship, Problematic behaviors secondary to diagnosis and Adequacy of current interventions Details: I spent 40 minutes reviewing the record, seeing the patient and documenting in the medical record. Counseling provided to the patient/caregiver as outlined below. Addressed patient/caregiver concerns regarding current medication regime including effective adherence. Addressed patient/caregiver concerns regarding diagnosis and prognosis including accuracy of diagnosis, prognosis over time, impact of diagnosis. Addressed patient/caregiver concerns regarding impact of recent stressors. [facility] Medical History (Updated 12/01/24 @ 16:59 by Radha Rivera APRN) Excessive vitamin B6 intake Elevated vitamin B12 level Hyponatremia Small intestinal bacterial overgrowth IBS (irritable bowel syndrome) Numbness in both hands Ringing in ears Anxiety GERD (gastroesophageal reflux disease) HTN (hypertension) High cholesterol Surgical History History of colonoscopy (~10/30/17) History of nasal surgery History of left inguinal hernia repair History of appendectomy Family History Father Diabetes Alcohol abuse Mother Dementia Social History Housing: House Alcohol intake: current Alcohol intake frequency: holidays/special occasions only Alcohol type: wine Patient Tobacco Use Status: Former Tobacco user service: No Current occupational status: retired Cognitive needs: No Hearing needs: No Vision needs: Yes (rx glasses) Social History: 53 yrs. 2 adult children Has a daughter who transitioned from male to female. Daughter had leukemia in 1999 which was very frightening for family. Daughter lives at home with her and . pt has been supportive and gone to all daughter's medical appts for leukemia and transition. 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 Substance History: daily alcohol use until 1.5 weeks ago when told she had etoh dementia. she reports regular use of 2-3 glasses of wine and 1-2 shots of vodka daily to several times a week for years. No other drug use Trauma History: lived in [place] during 10/23 Coding Level of Care Code Est Pt Level 4 (75494) Diagnoses Anxiety F41.9 Alcohol abuse F10.10
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
--- OUTSIDE RECORDS SUMMARY | 2024-10-27 17:50 | XMS_ITS | Encounter Summary ---
Author Organization [facility] Address [address] [place] [address] Phone Care Team Providers Care Waitstaff Captain Name Role Phone Ananth Fung MD Primary Care Provider [phone] Encounter Details Date Type Department Care Team (Late st Contact Info) Description 12/23/2020 Telephone [facility] [address] [place] [address] Kennedi Bridges Social History Tobacco [...] on filedocumented in this encounter Care Teams Waitstaff Captain Relationship Specialty Start Date End Date Ananth Fung MD [address] [place] [address] PCP - General Internal Medicine 10/27/20 documented as of this encounter
--- OUTSIDE RECORDS SUMMARY | 2024-10-27 17:50 | XMS_ITS | Clinical Summary ---
Author Organization [facility] Address [address] [place] [address] Phone Care Team Providers Care Burr Bench Hand Name Role Phone Ananth Fung MD Primary Care Provider [phone] Allergies Active Allergy Reactions Criticality Noted Date [...] patient's age to complete this topic Insurance [facility] ESTER Neri([id number]) [facility] PPO Blue([id number]) Care Teams Burr Bench Hand Relationship Specialty Start Date End Date Ananth Fung MD [address] [place] [address] PCP - General Internal Medicine 10/27/20
== END 2024-10-27 13:35 | disposition home or self-care (01) ==
LOC: HO.HOP 12:56
PROVIDERS: PCP Internal Medicine; Visit Provider Clinical Nurse Specialist Psychiatric/Mental Health
DX: F41.9 Anxiety disorder, unspecified (principal); F10.10 Alcohol abuse, uncomplicated
CPT/HCPCS: 99214

== ENCOUNTER → 2024-10-27 12:56 | Outpatient (BNVA) | payer MEDICARE, SELFPAY | PROVIDERS: PCP Internal Medicine; Visit Provider Clinical Nurse Specialist Psychiatric/Mental Health | DX: F41.9 Anxiety disorder, unspecified (principal); F10.10 Alcohol abuse, uncomplicated | CPT/HCPCS: 99212 ==

== ENCOUNTER 2024-12-01 14:03 | Outpatient (AMB) | payer MEDICARE, SELFPAY ==
--- NOTE | 2024-12-01 14:09 | MHC.OFFVISPS ---
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 Pt reports the lexapro 10mg daily is tolerable and seems to be helping a little. she feels more hopeful. She reports she feels flat; its not clear if from depression or from lexapro side effect. Pt reports continued moderate anxiety and depression. PHQ9=8 and GAD7= 13. 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 She does not believe she has alcohol related dementia; She reports she had severe side effect from having a glass of wine while on metroniazodole which does act similar to antabuse and can cause symptoms she experienced including peripheral neuropathy. She reports having 1-2 drinks of wine over the weekend without adverse effect. She denies daily use of ETOH. She deies having more than 1.5 glasses of wine when she does have it. Pt has been on long-term use of Temazepam for insomnia has led to high tolerance. She reports being on temazepam for RLS. She reports xanax prn is very helpful for panic attacks. She reports she recently started with a therapist and is feeling hopeful that will help her. She has high anxiety. worries, has panic attacks, and ruminates when she can't fix something. She denies SI or HI. We tried to reduce the temazepam to 15mg but insurance wouldn't cover the 15 mg caps so we will hold off for now and try again in future. She completed MMSE in office and scored 29/30. She listed the town as [place] but said she thought I was asking where she lived. She had 3/3 recall after 5 minutes. she was able to flawlessly count backwards from 100 by sevens for 6 trials when i told her she could stop. She copied the figure completely. she also was able to name objects without difficulty. Past Psychiatric History: Pt seen in past by Dr Petey Eller outpt. trialed on wellbutrin - negative side effects, prozac caused hyponatremia. afraid to try recommended duloxetine due to hyponatremai. Subjective Subjective Subjective Medication Compliance: Yes Side effects from medications: No Review of Systems Medical Review of Systems: unchanged Mental Status Exam Mental Status Exam Patient Appearance: Well Grooomed and Appropriate Patient Orientation: Person, Place, Time and Situation Level of Consciousness: Awake, Appropriate and Alert Patient Behavior: Appropriate, Cooperative and Anxious Mood Description: Anxious, Nervous, Apprehensive and Expansive Affect Description: Anxious, Nervous and Expansive Patient Cognition Impaired: No Ability to Follow Directions: Good Speech Pattern: Clear, Perseverating, Coherent and Excessive Hallucinations: None Delusions: Not Present Thought Process: Rumination Thought Content: positive for Preoccupation Judgement: Fair Assessment and Plan Assessment & Plan (1) KEATON (generalized anxiety disorder): Status: Acute Code(s): F41.1 - Generalized anxiety disorder Plan continue lexapro to 10 mg daily continue xanax prn continue temazepam and try to reduce again in future drink 24 ounces of water per day drink gatorade or electrolyte mix if needing more hydration due to hx hyponatremia labs in 2 weeks use small amount of table salt with meals stay away from all alcohol return in 6 weeks Medications: New temazepam 30 mg PO BEDTIME PRN 30 caps 1RF sleep Refilled alprazolam 1 mg PO BID PRN 60 tabs 1RF anxiety 30 days escitalopram oxalate (Lexapro) 10 mg PO DAILY 90 tabs 1RF Discontinued temazepam Take 1-2 capsules as needed at night for insomnia Discontinued Reason: Doctor's Order 30 mg (2 x 15 mg) PO BEDTIME PRN 60 caps 2RF sleep Orders: Orders Comprehensive Met. Panel Today E87.1 - Hypo-osmolality and hyponatremia Counseling and coordination of Care Pt. Self Management counseling: Med illness tx adherence, Mod caffeine/ETOH intake, Nutrition education and improvement, Sleep hygiene and General coping skills Medication management counseling: Effectiveness, Side effects, Dosing range, Duration, Drug interaction and Adherence Details-Med Mgmt counseling: education re: group home use of benzodiazepines and etoh use Diagnosis and Prognosis Counseling: Accuracy of diagnosis, Prognosis over time, Impact of diagnosis on life functions, Impact of family relationship, Problematic behaviors secondary to diagnosis and Adequacy of current interventions Details: I spent 40 minutes reviewing the record, seeing the patient and documenting in the medical record. Counseling provided to the patient/caregiver as outlined below. Addressed patient/caregiver concerns regarding current medication regime including effective adherence. Addressed patient/caregiver concerns regarding diagnosis and prognosis including accuracy of diagnosis, prognosis over time, impact of diagnosis. Addressed patient/caregiver concerns regarding impact of recent stressors. [facility] Medical History (Updated 12/01/24 @ 16:59 by Radha Rivera APRN) Excessive vitamin B6 intake Elevated vitamin B12 level Hyponatremia Small intestinal bacterial overgrowth IBS (irritable bowel syndrome) Numbness in both hands Ringing in ears Anxiety GERD (gastroesophageal reflux disease) HTN (hypertension) High cholesterol Surgical History History of colonoscopy (~10/30/17) History of nasal surgery History of left inguinal hernia repair History of appendectomy Family History Father Diabetes Alcohol abuse Mother Dementia Social History Housing: House Alcohol intake: current Alcohol intake frequency: holidays/special occasions only Alcohol type: wine Patient Tobacco Use Status: Former Tobacco user service: No Current occupational status: retired Cognitive needs: No Hearing needs: No Vision needs: Yes (rx glasses) Social History: 53 yrs. 2 adult children Has a daughter who transitioned from male to female. Daughter had leukemia in 1999 which was very frightening for family. Daughter lives at home with her and . pt has been supportive and gone to all daughter's medical appts for leukemia and transition. 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 Substance History: daily alcohol use until 1.5 weeks ago when told she had etoh dementia. she reports regular use of 2-3 glasses of wine and 1-2 shots of vodka daily to several times a week for years. No other drug use Trauma History: lived in [place] during 10/23 Coding Level of Care Code Est Pt Level 4 (10002) Diagnoses KEATON (generalized anxiety disorder) F41.1
== END 2024-12-01 14:42 | disposition home or self-care (01) ==
LOC: HO.HOP 14:03
PROVIDERS: PCP Internal Medicine; Visit Provider Clinical Nurse Specialist Psychiatric/Mental Health
DX: F41.1 Generalized anxiety disorder (principal)
CPT/HCPCS: 99214

== ENCOUNTER → 2024-12-01 14:03 | Outpatient (BNVA) | payer MEDICARE, SELFPAY | PROVIDERS: PCP Internal Medicine; Visit Provider Clinical Nurse Specialist Psychiatric/Mental Health | DX: F41.1 Generalized anxiety disorder (principal) | CPT/HCPCS: 99212 ==

== ENCOUNTER 2024-12-29 13:02 | Outpatient (AMB) | payer MEDICARE, SELFPAY ==
--- NOTE | 2024-12-29 13:07 | A.OFFPSYCH_ITS ---
Intake Intake Visit Reasons: follow up Rehabilitation Manager Required: No Allergies penicillin G Allergy (Unknown, Verified 10/24/24 10:21) pt unsure Medication List - Last Reconciled 12/29/24 by Radha Rivera APRN alprazolam 1 mg PO BID PRN 30 days calcium carbonate 600 mg PO DAILY cholecalciferol (vitamin D3) 25 mcg PO DAILY dicyclomine 10 mg PO escitalopram oxalate (Lexapro) 10 mg PO DAILY omeprazole 40 mg PO DAILY temazepam 30 mg PO BEDTIME PRN valsartan 80 mg PO DAILY HPI- Psychiatric Chief Complaint: follow up HPI Narrative: Pt seen for follow up re: anxiety. Pt reports the lexapro 10mg daily is helping her mood and anxiety. PHQ9=2 and GAD7= 5. She reports xanax prn is very helpful for panic attacks. She is taking the xanax 2 times a day. She reports she recently started with a therapist and is feeling hopeful that will help her. She denies SI or HI. At last visit, she completed MMSE in office and scored 29/30. Pt next goal is to reduce the dose of xanax slowly. Over the next 8 weeks she will reduce the xanax by 0.5mg per 24 hours. Past Psychiatric History: Pt seen in past by Dr Petey Eller outpt. trialed on wellbutrin - negative side effects, prozac caused hyponatremia. afraid to try recommended duloxetine due to hyponatremai. Subjective Subjective Medication Compliance: Yes Side effects from medications: No Review of Systems Medical Review of Systems: unchanged Mental Status Exam Mental Status Exam Patient Appearance: Well Grooomed and Appropriate Patient Orientation: Person, Place, Time and Situation Level of Consciousness: Awake, Appropriate and Alert Patient Behavior: Appropriate, Cooperative and Anxious Mood Description: Calm and Happy Affect Description: Calm and Happy Patient Cognition Impaired: No Ability to Follow Directions: Good Speech Pattern: Clear, Perseverating, Coherent and Excessive Hallucinations: None Delusions: Not Present Thought Process: Intact and Goal Oriented Thought Content: positive for Intact and positive for Goal Oriented Judgement: Fair Assessment and Plan Assessment & Plan (1) KEATON (generalized anxiety disorder): Status: Acute Code(s): F41.1 - Generalized anxiety disorder Plan continue lexapro to 10 mg daily continue xanax prn and try to reduce by 0.5mg return in 8 weeks Medications: Refilled alprazolam 1 mg PO BID PRN 60 tabs 1RF anxiety 30 days temazepam 30 mg PO BEDTIME PRN 30 caps 1RF sleep escitalopram oxalate (Lexapro) 10 mg PO DAILY 90 tabs 1RF Counseling and coordination of Care Pt. Self Management counseling: Med illness tx adherence, Mod caffeine/ETOH intake, Nutrition education and improvement, Sleep hygiene and General coping skills Medication management counseling: Effectiveness, Side effects, Dosing range, Duration, Drug interaction and Adherence Details-Med Mgmt counseling: education re: jail use of benzodiazepines and etoh use Diagnosis and Prognosis Counseling: Accuracy of diagnosis, Prognosis over time, Impact of diagnosis on life functions, Impact of family relationship, Problematic behaviors secondary to diagnosis and Adequacy of current i nterventions Details: I spent 35 minutes reviewing the record, seeing the patient and documenting in the medical record. Counseling provided to the patient/caregiver as outlined below. Addressed patient/caregiver concerns regarding current medication regime including effective adherence. Addressed patient/caregiver concerns regarding diagnosis and prognosis including accuracy of diagnosis, prognosis over time, impact of diagnosis. Addressed patient/caregiver concerns regarding impact of recent stressors. [facility] Medical History (Updated 12/01/24 @ 16:59 by Radha Rivera APRN) Excessive vitamin B6 intake Elevated vitamin B12 level Hyponatremia Small intestinal bacterial overgrowth IBS (irritable bowel syndrome) Numbness in both hands Ringing in ears Anxiety GERD (gastroesophageal reflux disease) HTN (hypertension) High cholesterol Surgical History History of colonoscopy (~10/30/17) History of nasal surgery History of left inguinal hernia repair History of appendectomy Family History Father Diabetes Alcohol abuse Mother Dementia Social History Housing: House Alcohol intake: current Alcohol intake frequency: holidays/special occasions only Alcohol type: wine Patient Tobacco Use Status: Former Tobacco user service: No Current occupational status: retired Cognitive needs: No Hearing needs: No Vision needs: Yes (rx glasses) Social History: 53 yrs. 2 adult children Has a daughter who transitioned from male to female. Daughter had leukemia in 1999 which was very frightening for family. Daughter lives at home with her and . pt has been supportive and gone to all daughter's medical appts for leukemia and transition. 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 Substance History: daily alcohol use until 1.5 weeks ago when told she had etoh dementia. she reports regular use of 2-3 glasses of wine and 1-2 shots of vodka daily to several times a week for years. No other drug use Trauma History: lived in [place] during 10/23 Coding Level of Care Code Est Pt Level 4 (32863) Diagnoses KEATON (generalized anxiety disorder) F41.1
== END 2024-12-29 14:01 | disposition home or self-care (01) ==
LOC: HO.HOP 13:02
PROVIDERS: PCP Internal Medicine; Visit Provider Clinical Nurse Specialist Psychiatric/Mental Health
DX: F41.1 Generalized anxiety disorder (principal)
CPT/HCPCS: 99214

== ENCOUNTER → 2024-12-29 13:02 | Outpatient (BNVA) | payer MEDICARE, SELFPAY | PROVIDERS: PCP Internal Medicine; Visit Provider Clinical Nurse Specialist Psychiatric/Mental Health | DX: F41.1 Generalized anxiety disorder (principal) | CPT/HCPCS: 99212 ==

== ENCOUNTER 2025-01-07 13:25 | Outpatient (REF) | payer MEDICARE, SELFPAY ==
[2025-01-13 10:03] LABS: ABETA 42/40 Ratio 0.188 (> OR = 0.170); Alzeheimer's Interpretation Low Likelihood; Tau protein phosphorylated 217 0.07 pg/mL (< OR = 0.15)
== END 2025-01-07 13:26 | disposition home or self-care (01) ==
LOC: HO.LAB 13:25
PROVIDERS: PCP Internal Medicine; Visit Provider Psychiatry & Neurology Neurology
DX: I67.89 Other cerebrovascular disease (principal); G31.9 Degenerative disease of nervous system, unspecified; I10 Essential (primary) hypertension; Z87.891 Personal history of nicotine dependence
CPT/HCPCS: 36415; 82233; 82234; 84393; 99212

== ENCOUNTER 2025-01-07 13:25 | Outpatient (AMB) | payer MEDICARE, SELFPAY ==
--- NOTE | 2025-01-07 13:30 | MHC.OFFVIS ---
Intake Visit Reasons: Follow up after MRI Allergies penicillin G Allergy (Unknown, Verified 10/24/24 10:21) pt unsure HPI Comments Details: 74 years old woman with significant anxiety, GI symptoms that might be IBS type, at least some exposure to alcohol that she stated was not significant, with head CT in 2021 an MRI of brain in 2024 revealing mild to moderate cerebellar atrophy and mild chronic microvascular ischemic changes. Her mother was diagnosed with dementia probably of Alzheimer type when she was 80 years old. She has been seeing a psychiatrist and was prescribed Lexapro. She was very concerned that the wording of or mentioned of alcohol in her records might compromise her care. [facility]END[facility] TO [facility] Medical History (Updated 01/07/25 @ 13:42 by Bonnie Lopez MD) Excessive vitamin B6 intake Elevated vitamin B12 level Hyponatremia Small intestinal bacterial overgrowth IBS (irritable bowel syndrome) Numbness in both hands Ringing in ears Anxiety GERD (gastroesophageal reflux disease) HTN (hypertension) High cholesterol Surgical History History of colonoscopy (~10/30/17) History of nasal surgery History of left inguinal hernia repair History of appendectomy Family History Father Diabetes Alcohol abuse Mother Dementia Social History Housing: House Alcohol intake: current Alcohol intake frequency: holidays/special occasions only Alcohol type: wine Patient Tobacco Use Status: Former Tobacco user service: No Current occupational status: retired Cognitive needs: No Hearing needs: No Vision needs: Yes (rx glasses) Review of Systems Narrative General: Not feeling well Neurological: Struggling with a overall situation Psychiatric: Feeling very nervous and anxious GI: Having abdominal discomfort Physical Exam Neuro Other: Mental Status: She is alert and awake with normal spontaneity of speech fluency comprehension and anxious affect. Andres cognitive assessment scale is 25 and mini-mental status score 29. Cranial Nerves: CN II: Visual gibson full to confrontation, visual acuity intact. CN III, IV, : Pupils equal, round, reactive to light and accommodation. Extraocular movements are normal. CN V: Facial sensation is normal. CN VII: Facial movements symmetrical. CN VIII: Hearing intact to bedside conversation is normal. CN IX, X: Palate elevates symmetrically. CN XI: Shoulder shrug and head turn symmetrical. CN XII: Tongue midline without atrophy or fasciculations. Gait and Station: No obvious gait abnormality. No ataxia or instability. Extrapyramidal: Full facial expressions and blinking. No rigidity. Movements are appropriate with no tremor or abnormality. Speech: Normal; no dysarthria or tremor. Results Reviewed Results Reviewed: Laboratory Tests 08/28/24 09/11/24 06:19 10:23 Vitamin B12 928 H Folate 13.5 TSH 3.43 Assessment & Plan Assessment & Plan (1) Cerebellar atrophy: Comment: MRI brain WO at [facility] in 2024: Cerebellar atrophy, mild MVD CT brain WO at [facility] in 2021: Mild cerebellar atrophy Code(s): G31.9 - Degenerative disease of nervous system, unspecified Category: Medical (2) Cerebral microvascular disease: Code(s): I67.89 - Other cerebrovascular disease Category: Medical (3) MCI (mild cognitive impairment): Code(s): G31.84 - Mild cognitive impairment of uncertain or unknown etiology Category: Medical Plan 74 years old woman who was struggling with symptoms of anxiety and IBS type of symptoms. She had a head CT done in 2021 that revealed mild cerebellar atrophy. Her recent MRI of brain again confirmed that finding and also showed mild chronic microvascular ischemic changes. She had some exposure to alcohol but she said that she was never drinking too much. One day she had a significant reaction from alcohol but she was also taking another medicine at that time. That might have happened because of the combination. As far as cerebellar atrophy is concerned, it is a known and common problem with alcohol use disorder but it also might be just genetic in origin. Other than that there was mild cerebral microvascular disease of brain, which would not explain her symptoms. Her mother apparently suffered from dementia probably of Alzheimer type. She was diagnosed when she was 81 years old. Because of that, I have requested serum test for cerebral amyloid to see if [place] has this condition. Also, radiology reports or typically not very helpful in this type of situation and might given impression of no significant problem while it existed in both scans. My advice to her was to not drink alcohol even if it was not the cause of her cerebellar problem. Orders: Orders ABeta 42/40 p-tau 217 Eval Today G31.84 - Mild cognitive impairment of uncertain or unknown etiology Coding Level of Care Code Est Pt Level 4 (17504) Diagnoses Cerebellar atrophy G31.9 Cerebral microvascular disease I67.89 MCI (mild cognitive impairment) G31.84
--- OUTSIDE RECORDS SUMMARY | 2025-01-07 16:32 | XMS_ITS | Encounter Summary ---
Author Organization [facility] Address [address] [place] [address] Phone Care Team Providers Care Senior Qa Tester Name Role Phone Ananth Fung MD Primary Care Provider [phone] Encounter Details Date Type Department Care Team (Late st Contact Info) Description 12/23/2020 Telephone [facility] [address] [place] [address] Kennedi Bridges Social History Tobacco [...] on file documented as of this encounter Functional Status documented as of this encounter Plan of Treatment Not on file documented as of this encounter Visit Diagnoses Not on filedocumented in this encounter Care Teams Senior Qa Tester Relationship Specialty Start Date End Date Ananth Fung MD [address] [place] [address] PCP - General Internal Medicine 10/27/20 documented as of this encounter
--- OUTSIDE RECORDS SUMMARY | 2025-01-07 16:32 | XMS_ITS | Clinical Summary ---
Author Organization [facility] Address [address] [place] [address] Phone Care Team Providers Care Component Assembler Supervisor Name Role Phone Ananth Fung MD Primary Care Provider [phone] Allergies Active Allergy Reactions Criticality Noted Date [...] patient's age to complete this topic Insurance [facility] ESTER Neri([id number]) [facility] PPO Blue([id number]) Care Teams Component Assembler Supervisor Relationship Specialty Start Date End Date Ananth Fung MD [address] [place] [address] PCP - General Internal Medicine 10/27/20
== END 2025-01-07 14:04 | disposition home or self-care (01) ==
LOC: HO.HSM 13:25
PROVIDERS: PCP Internal Medicine; Visit Provider Psychiatry & Neurology Neurology
DX: G31.9 Degenerative disease of nervous system, unspecified (principal); I67.89 Other cerebrovascular disease; G31.84 Mild cognitive impairment of uncertain or unknown etiology
CPT/HCPCS: 99214

== ENCOUNTER 2025-01-28 12:19 | Outpatient (REF) | payer MEDICARE, SELFPAY ==
--- OUTSIDE RECORDS SUMMARY | 2024-03-11 08:20 | XMS_ITS ---
Author Organization [facility] Address [address] [place] [address] Care Team Providers Care Etl Tester Name Role Phone MAYUR, KARTIK Primary Care Provider Jd Francis Jr, Clifford Brand [phone] REASON FOR VISIT epigastric pain Problems Problem Type SNOMED Code ICD Code Onset Dates Problem Status W/U Status Risk Notes Problem Gastro-esophagea l reflux disease without esophagitis (216869906) Gastro-esophage al reflux disease without esophagitis (K21.9) Active confirmed Encounters Encounter Location Date Provider Diagnosis [facility] [place] [address] [place] [id number] 03/11/2024 Clifford Francis Jr Gastro-esophageal reflux disease without esophagitis K21.9 and Abdominal pain, epigastric R10.13 Assessments Encounter Date Diagnosis (ICD Code) Assessment Notes Treatment Notes Treatment Clinical Notes Section Notes 03/11/2024 Gastro-esophagea l reflux disease without esophagitis (ICD-10 - K21.9) 03/11/2024 Abdominal pain, epigastric (ICD-10 - R10.13) Plan Of Treatment Next Appt Details Provider Name:Clifford castanon Jr, 05/20/2025 11:20:00 AM, [address], [address], [place], [address], Progress Notes * TANIA ROJODOB: 2 (74 yo F)Acc No.[id number]:03/11/2024 EGD/MAC Patient: TANIA BURNHAM Provider: Francis Francis MD :1950 A ge:74 Y S ex:Female Date:03/11/2024 Address:[address] [facility] , [place] Pcp:YUNG MERCHANT Subjective: * Chief Complaints: * E pigastric pain Assessment: * Assessment: 1. G cheryl-esophageal reflux disease without esophagitis - K21.9 (Primary) 2 .?Abdominal pain, epigastric - R10.13 Plan: * Procedure Codes: 4 3239 UPPER GI ENDOSCOPY, BIOPSY Billing Information: * Procedure Codes: 87527 UPPER GI ENDOSCOPY, BIOPSY. * The named appointment provid er may or may not be the originator of this progress note, and it is not deemed complete until electronically signed by the appointment provider. Sign off status: Pending * Provider: Francis Francis MD Date: 0 03/11/2024 Generated for Desirae juarez/Margie/Crisitting on: 03/31/2024 04:14 PM EST
--- OUTSIDE RECORDS SUMMARY | 2025-01-26 06:00 | XMS_ITS ---
Author Organization [facility] Address [address] [facility] [address] [place] [address] Care Team Providers Care Developmental Services Worker Name Role Phone YUNG MERCHANT Primary Care Provider Clifford Rendon Jr REASON FOR VISIT Patient presents today for IBS Encounters Encounter Location Date Provider Diagnosis [facility] [address] [place] [phone] 01/26/2025 Clifford Francis Jr Plan Of Treatment Next Appt Details Provider Name:Clifford castanon Jr, 05/20/2025 11:20:00 AM, [address] [place] [address], [address], [place], [address], Progress Notes * TANIA ROJODOB: 2 (74 yo F)Acc No.[id number]:01/26/2025 Progress Notes Patient: TANIA BURNHAM Provider: Francis Francis MD :1950 A ge:74 Y S ex:Female Date:01/26/2025 Address:[address] , [place] Pcp:YUNG MERCHANT Subjective: * Chief Complaints: * P atient presents today for IBS Billing Information: * Procedure Codes: * The named appointment provid er may or may not be the originator of this progress note, and it is not deemed complete until electronically signed by the appointment provider. Sign off status: Pending * Provider: Francis Frnacis MD Date: 1 03/29/2024 Generated for Desirae juarez/Margie/Daphne on: 03/31/2024 04:13 PM EST
[2025-01-28 15:50] LABS: Alanine Aminotransferase 19 U/L (0-31); Albumin Level 5.1 g/dL (3.5-5.0); Alkaline Phosphatase 88 U/L (39-117); Anion Gap 15 (12-20); Aspartate Amino Transferase 21 U/L (5-31); Blood Urea Nitrogen 11 mg/dL (9-16); Calcium 9.9 mg/dL (8.4-10.2); Carbon Dioxide 27 mmol/L (22-29); Chloride 93 mmol/L (96-108); Estimated Glomerular Filt Rate > 60; Iron 74 mcg/dL (30-160); Percent Iron Saturation 19 % (15-50); Potassium 4.7 mmol/L (3.3-5.1); Sodium 130 mmol/L (135-145); Total Iron Binding Capacity 400 mcg/dL (228-428); Total Protein 7.7 g/dL (6.5-8.0); Unsaturated Iron Binding 326 ug/dL
[2025-01-28 15:54] LABS: Ferritin 20 ng/mL (10-250)
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
== END 2025-01-28 12:20 | disposition home or self-care (01) ==
LOC: HO.HMGCLDS 12:19
PROVIDERS: PCP Internal Medicine; Visit Provider Physician Assistant Medical
DX: E87.1 Hypo-osmolality and hyponatremia (principal); D64.9 Anemia, unspecified
CPT/HCPCS: 36415; 80053; 82728; 83540

== ENCOUNTER 2025-01-29 15:29 | Outpatient (AMB) | payer MEDICARE, SELFPAY ==
--- OUTSIDE RECORDS SUMMARY | 2024-03-11 08:20 | XMS_ITS ---
Author Organization [facility] Address [address] [place] [address] Care Team Providers Care Service Inspector Name Role Phone MAYUR, KARTIK Primary Care Provider Jd Francis Jr, Clifford Brand REASON FOR VISIT epigastric pain Problems Problem Type SNOMED Code ICD Code Onset Dates Problem Status W/U Status Risk Notes Problem Gastro-esophagea l reflux disease without esophagitis (007832235) Gastro-esophage al reflux disease without esophagitis (K21.9) Active confirmed Encounters Encounter Location Date Provider Diagnosis [facility] [place] [address] [place] [id number] 03/11/2024 Clifford Francis Jr Gastro-esophageal reflux disease without esophagitis K21.9 and Abdominal pain, epigastric R10.13 Assessments Encounter Date Diagnosis (ICD Code) Assessment Notes Treatment Notes Treatment Clinical Notes Section Notes 03/11/2024 Gastro-esophagea l reflux disease without esophagitis (ICD-10 - K21.9) 03/11/2024 Abdominal pain, epigastric (ICD-10 - R10.13) Plan Of Treatment Next Appt Details Provider Name:Clifford castanon Jr, 05/20/2025 11:20:00 AM, [address], [address], [place], [address], Progress Notes * TANIA ROJODOB: 2 (74 yo F)Acc No.[id number]:03/11/2024 EGD/MAC Patient: TANIA BURNHAM Provider: Francis Francis MD :1950 A ge:74 Y S ex:Female Date:03/11/2024 Address:[address] [facility] , [place] Pcp:YUNG MERCHANT Subjective: * Chief Complaints: * E pigastric pain Assessment: * Assessment: 1. G cheryl-esophageal reflux disease without esophagitis - K21.9 (Primary) 2 .?Abdominal pain, epigastric - R10.13 Plan: * Procedure Codes: 4 3239 UPPER GI ENDOSCOPY, BIOPSY Billing Information: * Procedure Codes: 36966 UPPER GI ENDOSCOPY, BIOPSY. * The named appointment provid er may or may not be the originator of this progress note, and it is not deemed complete until electronically signed by the appointment provider. Sign off status: Pending * Provider: Francis Francis MD Date: 0 03/11/2024 Generated for Desirae juarez/Margie/Crisitting on: 04/01/2024 07:24 PM EST
--- OUTSIDE RECORDS SUMMARY | 2025-01-26 06:00 | XMS_ITS ---
Author Organization [facility] Address [address] [facility] [address] [place] [address] Care Team Providers Care Supply Cataloguer Name Role Phone YUNG MERCHANT Primary Care Provider Clifford Rendon Jr REASON FOR VISIT Patient presents today for IBS Encounters Encounter Location Date Provider Diagnosis [facility] [address] [place] [phone] 01/26/2025 Clifford Francis Jr Plan Of Treatment Next Appt Details Provider Name:Clifford castanon Jr, 05/20/2025 11:20:00 AM, [address] [place] [address], [address], [place], [address], Progress Notes * TANIA ROJODOB: 2 (74 yo F)Acc No.[id number]:01/26/2025 Progress Notes Patient: TANIA BURNHAM Provider: Francis Francis MD :1950 A ge:74 Y S ex:Female Date:01/26/2025 Address:[address] , [id number] Pcp:YUNG MERCHANT Subjective: * Chief Complaints: * P atient presents today for IBS Billing Information: * Procedure Codes: * The named appointment provid er may or may not be the originator of this progress note, and it is not deemed complete until electronically signed by the appointment provider. Sign off status: Pending * Provider: Francis Francis MD Date: 1 03/29/2024 Generated for Desirae juarez/Margie/Daphne on: 04/01/2024 07:24 PM EST
--- NOTE | 2025-01-29 14:51 | MHC.OFFVISPS ---
Intake Intake Visit Reasons: f/u consultation Patient Observation Assistant Required: No Allergies penicillin G Allergy (Unknown, Verified 10/24/24 10:21) pt unsure Medication List - Last Reconciled 01/29/25 by Radha Rivera APRN alprazolam 1 mg PO BID PRN 30 days calcium carbonate 600 mg PO DAILY cholecalciferol (vitamin D3) 25 mcg PO DAILY dicyclomine 10 mg PO escitalopram oxalate (Lexapro) 10 mg PO DAILY omeprazole 40 mg PO DAILY temazepam 30 mg PO BEDTIME PRN valsartan 80 mg PO DAILY HPI- Psychiatric Chief Complaint: f/u consultation HPI Narrative: Pt seen for follow up re: lab results and anxiety. Pt reports the lexapro 10mg daily is helping her mood and anxiety. Her recent chemistry showed sodium level of 130. Pt reports in past her sodium went down to 112. Looking back over her labs for past 2 years her sodium level fluctuates between 130-135. She has cold symptosm for past 2 weeks and began to worry about hyponatremia; discussed her results. advised her to reduce lexapro to 5mg today and to increase salt intake slightly. Agree to check labs again in 1-2 weeks. she reports an increase in anxiety and worry. No confusion, no lethargy. she is not sleeping well due to worry. She is oriented x 3. no slurring. she is alert, logical and coherent She denies SI or HI. Past Psychiatric History: Pt seen in past by Dr Petey Eller outpt. trialed on wellbutrin - negative side effects, prozac caused hyponatremia. afraid to try recommended duloxetine due to hyponatremai. Subjective Subjective Medication Compliance: Yes Side effects from medications: No Review of Systems Medical Review of Systems: unchanged Mental Status Exam Mental Status Exam Patient Appearance: Well Grooomed and Appropriate Patient Orientation: Person, Place, Time and Situation Level of Consciousness: Awake, Appropriate and Alert Patient Behavior: Appropriate, Cooperative and Anxious Mood Description: Calm and Happy Affect Description: Calm and Happy Patient Cognition Impaired: No Ability to Follow Directions: Good Speech Pattern: Clear, Perseverating, Coherent and Excessive Hallucinations: None Delusions: Not Present Thought Process: Intact and Goal Oriented Thought Content: positive for Intact and positive for Goal Oriented Judgement: Fair Telehealth Telehealth Telehealth Platform: [facility] Location of provider rendering services: practice address Location of patient: address on file Patient Identification confirmed using: Name, : Yes Telehealth method: video Patient verbally consented to treatment: Yes Patient verbally consented to billing insurance company: Yes Patient informed of any privacy concerns related to visit: Yes Minutes spent on Phone/Video with Pt.: 15 Assessment and Plan Assessment & Plan (1) KEATON (generalized anxiety disorder): Status: Acute Code(s): F41.1 - Generalized anxiety disorder Plan recheck labs in 1-2 weeks call 911 or go to ED if has confusion and lethargy continue lexapro to 10 mg daily continue xanax prn return in 2-4 weeks Orders: Orders TSH reflex Free T4 Today F41.9 - Anxiety disorder, unspecified Vitamin B1 Today F10.10 - Alcohol abuse, uncomplicated, F41.1 - Generalized anxiety disorder Comprehensive Met. Panel Today E87.1 - Hypo-osmolality and hyponatremia Vitamin B12 and Folate Today F41.9 - Anxiety disorder, unspecified, R53.83 - Other fatigue Magnesium Today F41.1 - Generalized anxiety disorder, R53.83 - Other fatigue Counseling and coordination of Care Pt. 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 Counseling provided to the patient/caregiver as outlined below. Addressed patient/caregiver concerns regarding current medication regime including effective adherence. Addressed patient/caregiver concerns regarding diagnosis and prognosis including accuracy of diagnosis, prognosis over time, impact of diagnosis. Addressed patient/caregiver concerns regarding impact of recent stressors. [facility] Medical History (Updated 01/29/25 @ 15:00 by Radha Rivera APRN) Excessive vitamin B6 intake Elevated vitamin B12 level Hyponatremia Small intestinal bacterial overgrowth IBS (irritable bowel syndrome) Numbness in both hands Ringing in ears Anxiety GERD (gastroesophageal reflux disease) HTN (hypertension) High cholesterol Surgical History History of colonoscopy (~10/30/17) History of nasal surgery History of left inguinal hernia repair History of appendectomy Family History Father Diabetes Alcohol abuse Mother Dementia Social History Housing: House Alcohol intake: current Alcohol intake frequency: holidays/special occasions only Alcohol type: wine Patient Tobacco Use Status: Former Tobacco user service: No Current occupational status: retired Cognitive needs: No Hearing needs: No Vision needs: Yes (rx glasses) Social History: 52 yrs. 2 adult children Has a daughter who transitioned from male to female. Daughter had leukemia in 1999 which was very frightening for family. Daughter lives at home with her and . pt has been supportive and gone to all daughter's medical appts for leukemia and transition. 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 Substance History: daily alcohol use until 1.5 weeks ago when told she had etoh dementia. she reports regular use of 2-3 glasses of wine and 1-2 shots of vodka daily to several times a week for years. No other drug use Trauma History: lived in [place] during 10/23 Coding Level of Care Code Tele Est Pt Level 3 (03096) Diagnoses KEATON (generalized anxiety disorder) F41.1
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
--- OUTSIDE RECORDS SUMMARY | 2025-01-29 19:25 | XMS_ITS | Clinical Summary ---
Author Organization [facility] Address [address] [place] [address] Phone Care Team Providers Care Leather Grainer Name Role Phone Ananth Fung MD Primary Care Provider [phone] Allergies Active Allergy Reactions Criticality Noted Date [...] patient's age to complete this topic Insurance [facility] ESTER Neri([id number]) [facility] PPO Blue([id number]) Care Teams Leather Grainer Relationship Specialty Start Date End Date Ananth Fung MD [address] [place] [address] PCP - General Internal Medicine 10/27/20
--- OUTSIDE RECORDS SUMMARY | 2025-01-29 19:25 | XMS_ITS | Encounter Summary ---
Author Organization [facility] Address [address] [place] [address] Phone Care Team Providers Care Construction Director Name Role Phone Ananth Fung MD Primary Care Provider [phone] Encounter Details Date Type Department Care Team (Late st Contact Info) Description 12/23/2020 Telephone [facility] [address] [place] [address] Kennedi Bridges Social History Tobacco [...] on filedocumented in this encounter Care Teams Construction Director Relationship Specialty Start Date End Date Ananth Fung MD [address] [place] [address] PCP - General Internal Medicine 10/27/20 documented as of this encounter
== END 2025-01-29 15:29 | disposition home or self-care (01) ==
LOC: HO.HOP 15:29
PROVIDERS: PCP Internal Medicine; Visit Provider Clinical Nurse Specialist Psychiatric/Mental Health
DX: F41.1 Generalized anxiety disorder (principal)
CPT/HCPCS: 99213

== ENCOUNTER → 2025-01-29 15:29 | Outpatient (BNVA) | payer MEDICARE, SELFPAY | PROVIDERS: PCP Internal Medicine; Visit Provider Clinical Nurse Specialist Psychiatric/Mental Health | DX: G31.9 Degenerative disease of nervous system, unspecified (principal); E87.1 Hypo-osmolality and hyponatremia; F41.9 Anxiety disorder, unspecified; R53.83 Other fatigue; F41.1 Generalized anxiety disorder; F10.10 Alcohol abuse, uncomplicated | CPT/HCPCS: 99212 ==

== ENCOUNTER → 2025-01-29 15:47 | Outpatient (AMB) | payer MEDICARE, SELFPAY ==
--- NOTE | 2025-01-29 16:20 | A.OFFVIS_ITS ---
Intake Visit Reasons: 3 WEEK FOLLOW UP Allergies penicillin G Allergy (Unknown, Verified 10/24/24 10:21) pt unsure HPI Comments Details: 74 years old woman with significant anxiety, GI symptoms that might be IBS type, at least some exposure to alcohol that she stated was not significant, with head CT in 2021 an MRI of brain in 2024 revealing mild to moderate cerebellar atrophy and mild chronic microvascular ischemic changes. Her mother was diagnosed with dementia probably of Alzheimer type when she was 80 years old. At this time she was not having any problems and reported that she had no history of any significant alcohol exposure. She also denied any ongoing cognitive issues. She said that they happened because of the medicine she took, metronidazole. [facility] Medical History (Updated 01/29/25 @ 16:27 by Bonnie Lopez MD) Excessive vitamin B6 intake Elevated vitamin B12 level Hyponatremia Small intestinal bacterial overgrowth IBS (irritable bowel syndrome) Numbness in both hands Ringing in ears Anxiety GERD (gastroesophageal reflux disease) HTN (hypertension) High cholesterol Surgical History History of colonoscopy (~10/30/17) History of nasal surgery History of left inguinal hernia repair History of appendectomy Family History Father Diabetes Alcohol abuse Mother Dementia Social History Housing: House Alcohol intake: current Alcohol intake frequency: holidays/special occasions only Alcohol type: wine Patient Tobacco Use Status: Former Tobacco user service: No Current occupational status: retired Cognitive needs: No Hearing needs: No Vision needs: Yes (rx glasses) Review of Systems Narrative No significant issues at this time Physical Exam Neuro Other: Mental Status: Alert and oriented to person, place, and time. Normal attention. Normal spontaneous speech, fluency, and comprehension. No obvious issues with mood and memory. Affect is appropriate. Speech: Normal; no dysarthria or tremor. Results Reviewed Results Reviewed: Laboratory Tests 08/28/24 09/11/24 01/07/25 06:19 10:23 14:29 Vitamin B12 928 H Folate 13.5 TSH 3.43 Amyloid Score (APS2) 0.0086 Abeta42/40 Ratio 0.188 Lyme Screen IgG & IgM <0.90 Amyloidosis Interpret Low Likelihood Amyloid Beta 42 Peptide 48 Amyloid Beta 40 Peptide 255 Phosphorylated Tau 217 0.07 Assessment & Plan Assessment & Plan (1) Cerebellar atrophy: Comment: Labs at [facility] [place]: Amyloid test neg. MRI brain WO at [facility] in 2024: Cerebellar atrophy, mild MVD CT brain WO at [facility] in 2021: Mild cerebellar atrophy Code(s): G31.9 - Degenerative disease of nervous system, unspecified Category: Medical Plan Impression: Mild cerebellar atrophy with mild microvascular disease with tests negative for Alzheimer. Etiology of cerebellar atrophy is unclear. Rec: a: No alcohol b: PRN f/u Coding Level of Care Code Tele Est Pt Level 3 (08996) Diagnoses Cerebellar atrophy G31.9
== END ==
LOC: HO.HSM 15:48
PROVIDERS: PCP Internal Medicine; Visit Provider Psychiatry & Neurology Neurology
DX: G31.9 Degenerative disease of nervous system, unspecified (principal)
CPT/HCPCS: 99213